=== PATIENT | female | born 1940 | race American Indian/Alaskan Native ===

== ENCOUNTER 2018-11-02 07:55 | Day surgery (SDC) | payer MEDICARE ==
--- NOTE | 2018-11-02 10:20 | Cat Scan Report ---
CTA ABDOMEN AND PELVIS HISTORY: Essential hypertension, evaluate for AAA COMPARISON: None. TECHNIQUE: Noncontrast CT abdomen obtained. Routine postcontrast CT angiography of the abdomen and p nick performed. Multiplanar/MIP/3D reformats were post-processed. CONTRAST: 100 ml of Omnipaque 350 FINDINGS: CTA ABDOMEN: Abdominal Aorta: The abdominal aorta is ectatic with moderate to severe diffuse calcific plaques. No aneurysm or dissection. No stenosis. Celiac Artery: Mild calcific plaques at its origin with narrowing estimated at 25%. Superior Mesenteric Artery: Moderate calcific plaques at its origin with narrowing estimated at 50%. Renal Arteries: Right: Moderate partially calcified plaque at its origin with stenosis estimated at 50%. Left: Moderate partially calcified plaque at its origin with stenosis estimated at 50%. Inferior Mesenteric Artery: No significant abnormality. CTA PELVIS: RIGHT: Common Iliac Artery: Moderate calcific plaques but no hemodynamically significant stenosis. Internal Iliac Artery: Moderate calcific plaques but no hemodynamically significant stenosis. External Iliac Artery: Moderate calcific plaques but no hemodynamically significant stenosis. LEFT: Common Iliac Artery: Moderate calcific plaques but no hemodynamically significant stenosis. Internal Iliac Artery: Moderate calcific plaques but no hemodynamically significant stenosis. External Iliac Artery: Moderate calcific plaques but no hemodynamically significant stenosis. NONTARGET STRUCTURES: ABDOMEN: GI:No significant abnormality. :There is mild diffuse renal cortical thinning and scattered renal cysts. No nephrolithiasis or hy dronephrosis. Lymphatics:No significant abnormality. PELVIS: :Mildly calcified small uterine fibroids are identified. No adnexal mass. Osseous Structures: Osteopenia and mild degenerative changes in the spine. Additional Findings: None IMPRESSION: There is moderate diffuse arterial calcifications throughout the aorta and major branches as describe d above. No evidence for aneurysm or dissection. Mild atherosclerotic narrowing at the origins of the celiac axis and bilateral renal arteries is suspected. Signer Name: Dhiraj Myles Jr, MD Signed: 11/02/2018 10:16 AM Workstation Name: [id number]
== END 2018-11-02 07:56 | disposition home or self-care (01) ==
LOC: CATHLABREC 07:55 → CT 07:55 → CATHLABREC 07:56 → EDSTATUS 08:45
PROVIDERS: ATTEND Internal Medicine Cardiovascular Disease
DX: I70.0 Atherosclerosis of aorta (principal); I70.8 Atherosclerosis of other arteries; I71.2 Thoracic aortic aneurysm, without rupture; I12.9 Hypertensive chronic kidney disease with stage 1 through stage 4 chronic kidney disease, or unspecified chronic kidney disease; E11.22 Type 2 diabetes mellitus with diabetic chronic kidney disease; N18.3 Chronic kidney disease, stage 3 (moderate); M19.90 Unspecified osteoarthritis, unspecified site; F32.9 Major depressive disorder, single episode, unspecified; K21.9 Gastro-esophageal reflux disease without esophagitis; K55.1 Chronic vascular disorders of intestine; E11.65 Type 2 diabetes mellitus with hyperglycemia; E66.01 Morbid (severe) obesity due to excess calories; G47.30 Sleep apnea, unspecified; Z88.0 Allergy status to penicillin; Z88.8 Allergy status to other drugs, medicaments and biological substances; Z68.41 Body mass index [BMI] 40.0-44.9, adult; Z79.82 Long term (current) use of aspirin; Z79.899 Other long term (current) drug therapy; Z98.49 Cataract extraction status, unspecified eye; Z79.4 Long term (current) use of insulin; Z87.440 Personal history of urinary (tract) infections; Z91.81 History of falling; Z86.73 Personal history of transient ischemic attack (TIA), and cerebral infarction without residual deficits
CPT/HCPCS: 36415; 74174; 82565; 84520; Q9967

== ENCOUNTER 2020-06-04 21:49 | Inpatient (IN) | payer MEDICARE ==
[2020-06-04] MEDS ORDERED: oxyCODONE /ACETAMINOPHEN 5-325MG TAB PO ONE (22:15)
--- NOTE | 2020-06-04 22:21 | Emergency Department Report ---
ED General Adult HPI - General Chief complaint: Extremity Injury, Lower Stated complaint: RIGHT KNEE PAIN/MISSED DIALYSIS PUI?: No Time Seen by Provider: 06/04/20 22:03 Source: patient, EMS (Verbal report received from emergency medical services. EMS documentation not available at time of chart dictation ), RN notes reviewed, old records reviewed Mode of arrival: Stretcher Limitations: No Limitations, Physical Limitation - History of Present Illness Initial comments: The patient was evaluated in the emergency department for symptoms described in the history of present illness. He/she was evaluated in the context of the g lobal COVID-19 pandemic, which necessitated consideration that the patient might be at risk for infection with the virus that causes COVID-19. Institutional protocols and algorithms that pertain to the evaluation of patients at risk for COVID-19 are in a state of rapid change based on information released by regulatory bodies including the CDC and federal and state organizations. These policies and algorithms were followed during the patient's care in the emergency department. Please note that these policies, procedures and recommendations changed on a rapid basis. Nephrology: Dr Montemayor ( [facility] ) Cardiology: Dr Iraida Michelle Neurology: Dr Iraida Shelby Past medical history: Stroke, hypertension, end-stage renal disease on hemodialysis, diverticulitis, reports being admitted to [facility] about 2 weeks ago for symptomatic diverticulitis The patient is an 80-year-old female. She is brought to the hospital by emergency medical services. Patient was in her usual state of health a few days ago, when she slipped getting out of bed, and got stuck between the bed, and the wall. Patient was not able to ambulate afterwards, got herself back in the bed. The patient has been bedridden for the past 3 to 4 days, and has not been able to attend her activities of daily living or receive her hemodialysis. She called 911 today. She complains of right knee pain and leg pain. She does not think she hit her head. There is no neck pain. There is no chest pain. There is positive chronic shortness of breath. There is no abdominal pain. There is no dysuria. Patient reports defecating on herself in the bed, reports that her neighbors had to help her "clean myself." Today, patient called 911 because she is not able to attend to her activities of daily living. The patient typically gets dialysis Friday, , Friday, but her last hemodialysis session was last week on Friday. Her right knee pain is sharp and throbbing, increases with palpation and range of motion. It decreases with rest. -: days(s) Location: right, lower extremity Radiation: non-radiation Quality: aching Consistency: constant Improves with: rest Worsens with: movement - Related Data Home Medications Medication Instructions Recorded Confirmed Last Taken Aspirin 325 mg PO DAILY 01/27/14 06/30/15 01/27/14 325 mg Simvastatin (Nf) [Zocor TAB] 40 mg PO QHS 01/27/14 06/30/15 01/26/14 40 mg Folic Acid 20 mg PO QDAY 06/30/15 06/30/15 Unknown Furosemide [Lasix TAB] 20 mg PO QDAY 06/30/15 06/30/15 Unknown Omeprazole [PriLOSEC] 40 mg PO QDAY 06/30/15 06/30/15 Unknown Vit B Comp/C/Folic/Iron/Vit E 1 each PO QDAY 06/30/15 06/30/15 Unknown [Vitamin B Complex Tablet] Previous Rx's Medication Instructions Recorded Last Taken Type Insulin Aspart (Nf) [NovoLOG 100 10 units SUB-Q TID PRN 30 Days 01/31/14 Unknown Rx UNITS/ML VIAL] units Insulin Glargine [Lantus VIAL] 70 units SUB-Q HS 30 Days units 01/31/14 Unknown Rx amLODIPine 5 mg PO QDAY #30 tablet 01/31/14 Unknown Rx Bacitracin Zinc Oint [Antibiotic 1 applic TP PRN PRN #1 tube 07/14/15 Unknown Rx Oint] Clorazepate Dipotassium (Nf) 7.5 mg PO TID PRN #30 tablet 07/14/15 Unknown Rx [Tranxene (Nf)] cloNIDine [Catapres] 0.1 mg PO QDAY #30 tablet 07/14/15 Unknown Rx hydrALAZINE [Apresoline TAB] 50 mg PO Q8HR #90 tablet 07/14/15 Unknown Rx Sulfamethoxazole/Trimethoprim 1 each PO BID #20 tablet 10/20/15 Unknown Rx [Bactrim DS TAB] Allergies Allergy/AdvReac Type Severity Reaction Status Date / Time fesoterodine fumarate Allergy Unknown Verified 06/30/15 15:10 [From Ivonne] Penicillins AdvReac Unknown Verified 01/27/14 21:00 ED Review of Systems ROS: Stated complaint: RIGHT KNEE PAIN/MISSED DIALYSIS Other details as noted in HPI Constitutional: malaise, weakness, other (Denies loss of taste and smell). denies: fever Eyes: denies: eye discharge Respiratory: shortness of breath (Chronic shortness of breath) Cardiovascular: denies: chest pain Gastrointestinal: diarrhea. denies: abdominal pain, vomiting Genitourinary: denies: dysuria Musculoskeletal: arthralgia, myalgia Neurological: weakness (Global weakness). denies: headache Hematological/Lymphatic: denies: easy bleeding ED Past Medical Hx - Past Medical History Previous Medical History?: Yes Hx Hypertension: Yes Hx CVA: Yes (bilat leg weakness) Hx Diabetes: Yes Hx Deep Vein Thrombosis: No Hx GERD: Yes Hx Renal Disease: Yes (Hemodialysis Tues,Thurs and Sat) Hx Arthritis: Yes Hx HIV: No Additional medical history: neuropathy,neurogenic bladder-etiology unknown - Surgical History Past Surgical History?: Yes Additional Surgical History: Cyst removed from left lower extremity, fistula SAPNA - Social History Smoking Status: Never Smoker Substance Use Type: None - Medications Home Medications: Home Medications Medication Instructions Recorded Confirmed Last Taken Type Aspirin 325 mg PO DAILY 01/27/14 06/30/15 01/27/14 History 325 mg Simvastatin (Nf) [Zocor TAB] 40 mg PO QHS 01/27/14 06/30/15 01/26/14 History 40 mg Insulin Aspart (Nf) [NovoLOG 100 10 units SUB-Q TID PRN 30 Days 01/31/14 06/30/15 Unknown Rx UNITS/ML VIAL] units Insulin Glargine [Lantus VIAL] 70 units SUB-Q HS 30 Days units 01/31/14 06/30/15 Unknown Rx amLODIPine 5 mg PO QDAY #30 tablet 01/31/14 06/30/15 Unknown Rx Folic Acid 20 mg PO QDAY 06/30/15 06/30/15 Unknown History Furosemide [Lasix TAB] 20 mg PO QDAY 06/30/15 06/30/15 Unknown History Omeprazole [PriLOSEC] 40 mg PO QDAY 06/30/15 06/30/15 Unknown History Vit B Comp/C/Folic/Iron/Vit E 1 each PO QDAY 06/30/15 06/30/15 Unknown History [Vitamin B Complex Tablet] Bacitracin Zinc Oint [Antibiotic 1 applic TP PRN PRN #1 tube 07/14/15 Unknown Rx Oint] Clorazepate Dipotassium (Nf) 7.5 mg PO TID PRN #30 tablet 07/14/15 Unknown Rx [Tranxene (Nf)] cloNIDine [Catapres] 0.1 mg PO QDAY #30 tablet 07/14/15 Unknown Rx hydrALAZINE [Apresoline TAB] 50 mg PO Q8HR #90 tablet 07/14/15 Unknown Rx Sulfamethoxazole/Trimethoprim 1 each PO BID #20 tablet 10/20/15 Unknown Rx [Bactrim DS TAB] ED Physical Exam - General Limitations: Physical Limitation General appearance: alert, anxious, in distress, obese - Head Head exam: Present: atraumatic, normocephalic - Eye Eye exam: Present: normal appearance, EOMI. Absent: nystagmus - ENT ENT exam: Present: normal exam, normal orophraynx, mucous membranes moist, normal external ear exam - Neck Neck exam: Present: normal inspection, full ROM - Respiratory Respiratory exam: Present: accessory muscle use. Absent: respiratory distress, wheezes, rales, rhonchi, stridor - Cardiovascular Cardiovascular Exam: Present: regular rate, normal rhythm, normal heart sounds, JVD. Absent: bradycardia, tachycardia, irregular rhythm, systolic murmur, diastolic murmur, rubs, gallop - GI/Abdominal GI/Abdominal exam: Present: soft. Absent: distended, tenderness, guarding, rebound, rigid, pulsatile mass - Rectal Rectal exam: Present: normal inspection, other (Chaperoned by nurse Leesa Soriano) - Extremities Exam Extremities exam: Present: full ROM (Full range of motion in the bilateral upper extremities, and left lower extremity.), tenderness (The pelvis is tender. The distal right femur is tender. The right knee is tender. The ankles are not tender.), other (There is a left upper extremity fistula, without redness, pus, streaking or tenderness.). Absent: normal inspection ("Skin blister"/abrasion noted on the right lateral thigh. The patient states this is chronic.), calf tenderness - Back Exam Back exam: Present: normal inspection. Absent: tenderness, CVA tenderness (R), CVA tenderness (L), paraspinal tenderness, vertebral tenderness - Neurological Exam Neurological exam: Present: alert, other (No facial droop. Tongue midline. Extraocular movements intact bilaterally. Facial sensation intact to light touch in V1, V2, V3 distribution bilaterally. 5 and a 5 strength in 4 extremities. Sensation intact to light touch in 4 extremities.) - Psychiatric Psychiatric exam: Present: anxious - Skin Skin exam: Present: warm ED Course Vital Signs 06/04/20 06/04/20 06/04/20 22:06 22:08 22:16 Temperature Pulse Rate 106 H 105 H 105 H Respiratory 12 18 43 H Rate Blood Pressure 106/59 Blood Pressure 106/59 [Right] O2 Sat by Pulse 98 97 98 Oximetry O2 Sat by Pulse Oximetry [ Digit-Finger] 06/04/20 06/04/20 06/04/20 22:30 22:46 22:59 Temperature Pulse Rate 103 H 99 H Respiratory 45 H 48 H 18 Rate Blood Pressure 106/59 98/44 Blood Pressure [Right] O2 Sat by Pulse Oximetry O2 Sat by Pulse Oximetry [ Digit-Finger] 06/04/20 06/04/20 06/04/20 23:00 23:01 23:16 Temperature 98.4 F Pulse Rate 104 H 103 H Respiratory 47 H 48 H Rate Blood Pressure 98/44 119/62 Blood Pressure [Right] O2 Sat by Pulse Oximetry O2 Sat by Pulse Oximetry [ Digit-Finger] 06/05/20 00:20 Temperature Pulse Rate Respiratory Rate Blood Pressure Blood Pressure [Right] O2 Sat by Pulse Oximetry O2 Sat by Pulse 97 Oximetry [ Digit-Finger] - Reevaluation(s) Reevaluation #1: 06/04/20 22:22 Differential diagnosis, including but not limited to: Fall, fracture, strain, sprain, dislocation, end-stage renal disease on hemodialysis, closed head injury, debility, electrolyte derangement, rhabdomyolysis Assessment and plan: 80-year-old female who is on hemodialysis, who is clinically sober with a GCS of 15, it is currently Friday evening, her last dialysis session was Friday of last week, presenting with subacute complaint of mechanical fall, inability to get out of bed, and attend to her activities of daily living. Patient is clinically sober at this time. The cervical spine is cleared through nexus and [place]ong [place]onger c spine rule Place patient on ekg monitor. Obtain appropriate laboratory studies, EKG, appropriate x-rays, CT scan of the brain, treat pain, discussed with nephrology once initial laboratory studies have resulted, and reassess. Anticipate admission to the medical service once patient's initial diagnostics have resulted. I discussed this plan of care with the patient, who verbalized understanding, and is amenable to this plan of care. Reevaluation #2: 06/05/20 00:19 Laboratory studies are reviewed and appreciated. CT scan of the brain negative for acute traumatic findings. X-rays do not demonstrate fracture or dislocation. Leukocytosis on laboratory studies likely a stress reaction. Patient found to have azotemia, uremia, elevated troponin is likely a type II troponin leak, likely secondary to renal insufficiency. We will discuss with nephrology. 06/05/20 00:23 Discussed patient's history, physical, pertinent laboratory studies and imaging findings with nephrology on-call, Dr. Aguillon. We appreciate her specific laboratory studies at this time, however, patient not able to ambulate, care for herself, or engage in activities of daily living. She is also not able to follow-up as an outpatient for hemodialysis. She is therefore unsafe discharge, and will benefit from urgent hemodialysis, case management, physical therapy evaluation. Nephrology, Dr. Aguillon will follow in consultation, and arrange for urgent hemodialysis in the morning. We will admit patient for the aforementioned. Hospital physician, Dr. Margarita Coates to admit - Pulse Oximetry Interpretation Digit-Finger Initial Pulse Oximetry Readin O2 Sat by Pulse Oximetry: 97 Actions Taken: none ED Medical Decision Making - Lab Data Result diagrams: 06/04/20 23:11 06/04/20 23:11 Vital Signs 06/04/20 06/04/20 22:06 22:08 Pulse Rate 106 H 105 H Respiratory 12 18 Rate Blood Pressure 106/59 [Right] O2 Sat by Pulse 98 97 Oximetry Lab Results 06/04/20 06/04/20 06/04/20 Range/Units 23:11 23:11 23:11 WBC 12.0 H (4.5-11.0) K/mm3 RBC 3.62 L (3.65-5.03) M/mm3 Hgb 9.9 L (10.1-14.3) gm/dl Hct 31.0 (30.3-42.9) % MCV 86 (79-97) fl MCH 27 L (28-32) pg MCHC 32 (30-34) % RDW 19.4 H (13.2-15.2) % Plt Count 319 (140-440) K/mm3 PT 16.3 H (12.2-14.9) Sec. INR 1.31 H (0.87-1.13) Sodium 139 (137-145) mmol/L Potassium 3.5 L (3.6-5.0) mmol/L Chloride 101.6 (98-107) mmol/L Carbon Dioxide 22 (22-30) mmol/L Anion Gap 19 mmol/L BUN 54 H (7-17) mg/dL Creatinine 8.8 H (0.6-1.2) mg/dL Estimated GFR 5 ml/min BUN/Creatinine Ratio 6 % Glucose 222 H (65-100) mg/dL Calcium 8.7 (8.4-10.2) mg/dL Magnesium (1.7-2.3) mg/dL Total Bilirubin 0.20 (0.1-1.2) mg/dL AST 19 (5-40) units/L ALT 12 (7-56) units/L Alkaline Phosphatase 89 (35-129) units/L Total Creatine Kinase (30-135) units/L Troponin T 0.099 H (0.00-0.029) ng/mL Total Protein 7.0 (6.3-8.2) g/dL Albumin 2.7 L (3.9-5) g/dL Albumin/Globulin Ratio 0.6 % 06/04/20 Range/Units 23:11 WBC (4.5-11.0) K/mm3 RBC (3.65-5.03) M/mm3 Hgb (10.1-14.3) gm/dl Hct (30.3-42.9) % MCV (79-97) fl MCH (28-32) pg MCHC (30-34) % RDW (13.2-15.2) % Plt Count (140-440) K/mm3 PT (12.2-14.9) Sec. INR (0.87-1.13) Sodium (137-145) mmol/L Potassium (3.6-5.0) mmol/L Chloride (98-107) mmol/L Carbon Dioxide (22-30) mmol/L Anion Gap mmol/L BUN (7-17) mg/dL Creatinine (0.6-1.2) mg/dL Estimated GFR ml/min BUN/Creatinine Ratio % Glucose (65-100) mg/dL Calcium (8.4-10.2) mg/dL Magnesium 2.40 H (1.7-2.3) mg/dL Total Bilirubin (0.1-1.2) mg/dL AST (5-40) units/L ALT (7-56) units/L Alkaline Phosphatase (35-129) units/L Total Creatine Kinase 60 (30-135) units/L Troponin T (0.00-0.029) ng/mL Total Protein (6.3-8.2) g/dL Albumin (3.9-5) g/dL Albumin/Globulin Ratio % Vital Signs 06/04/20 06/04/20 06/04/20 22:06 22:08 22:16 Temperature Pulse Rate 106 H 105 H 105 H Respiratory 12 18 43 H Rate Blood Pressure 106/59 Blood Pressure 106/59 [Right] O2 Sat by Pulse 98 97 98 Oximetry O2 Sat by Pulse Oximetry [ Digit-Finger] 06/04/20 06/04/20 06/04/20 22:30 22:46 22:59 Temperature Pulse Rate 103 H 99 H Respiratory 45 H 48 H 18 Rate Blood Pressure 106/59 98/44 Blood Pressure [Right] O2 Sat by Pulse Oximetry O2 Sat by Pulse Oximetry [ Digit-Finger] 06/04/20 06/04/20 06/04/20 23:00 23:01 23:16 Temperature 98.4 F Pulse Rate 104 H 103 H Respiratory 47 H 48 H Rate Blood Pressure 98/44 119/62 Blood Pressure [Right] O2 Sat by Pulse Oximetry O2 Sat by Pulse Oximetry [ Digit-Finger] 06/05/20 00:15 Temperature Pulse Rate Respiratory Rate Blood Pressure Blood Pressure [Right] O2 Sat by Pulse Oximetry O2 Sat by Pulse 97 Oximetry [ Digit-Finger] - EKG Data -: EKG Interpreted by Ct EKG shows normal: sinus rhythm Rate: normal - EKG Data 06/04/20 23:04 EKG time of interpretation, 21: 59 Sinus rhythm, tachycardia, 103 bpm. Left axis deviation, left anterior fascicular block. Right bundle branch block noted, poor R wave progression, motion artifact V4. This is an abnormal EKG. This is not a STEMI - Radiology Data Radiology results: pending, report reviewed, image reviewed XR chest 1V ap INDICATION / CLINICAL INFORMATION: fall weakness dyspnea COMPARISON: None available. FINDINGS: SUPPORT DEVICES: None. HEART / MEDIASTINUM: No significant abnormality. LUNGS / PLEURA: Left lower lung zone is obscured which is thought to be related to prominent pericardiac fat. Otherwise, lungs are clear. No definite effusion. No pneumothorax. ADDITIONAL FINDINGS: No significant additional findings. IMPRESSION: 1. No acute findings. Signer Name: Omar Hensley MD Signed: 06/04/2020 10:37 PM Workstation Name: [id number] XR femur 2+V RT, XR knee 3V RT, XR pelvis 1-2V INDICATION / CLINICAL INFORMATION: fall leg pain. COMPARISON: None available. FINDINGS: No acute fracture. Normal alignment. Joint spaces are preserved. No destructive osseous lesion or suspicious periosteal reaction. Impression: 1.No acute fracture is identified. Signer Name: Omar Hensley MD Signed: 06/04/2020 10:49 PM Workstation Name: [id number] XR femur 2+V RT, XR knee 3V RT, XR pelvis 1-2V INDICATION / CLINICAL INFORMATION: fall leg pain. COMPARISON: None available. FINDINGS: No acute fracture. Normal alignment. Joint spaces are preserved. No destructive osseous lesion or suspicious periosteal reaction. Impression: 1.No acute fracture is identified. Signer Name: Omar Hensley MD Signed: 06/04/2020 10:49 PM Workstation Name: [id number] XR femur 2+V RT, XR knee 3V RT, XR pelvis 1-2V INDICATION / CLINICAL INFORMATION: fall leg pain. COMPARISON: None available. FINDINGS: No acute fracture. Normal alignment. Joint spaces are preserved. No destructive osseous lesion or suspicious periosteal reaction. Impression: 1.No acute fracture is identified. Signer Name: Omar Hensley MD Signed: 06/04/2020 10:49 PM Workstation Name: [id number] CT head/brain wo con INDICATION: fall weakness. TECHNIQUE: Routine CT head. All CT scans at this location are performed using CT dose reduction for ALARA by means of automated exposure control. COMPARISON: None. FINDINGS: Intrac ranial: Berg-white matter differentiation is maintained. No intracranial hemorrhage. No extra axial collection. No hydrocephalus. No herniation. Sinuses: Paranasal sinuses and mastoid air cells are essentially clear. Orbits: Globes are intact. Calvarium: No acute fracture. IMPRESSION: 1. No acute intracranial abnormality. Signer Name: Omar Hensley MD Signed: 06/04/2020 10:51 PM Workstation Name: [id number] Critical care attestation.: If time is entered above; I have spent that time in minutes in the direct care of this critically ill patient, excluding procedure time. ED Disposition Clinical Impression: Fall, Right leg pain, End-stage renal disease on hemodialysis, Morbid obesity, Debility, Uremia, Azotemia Disposition: 09 OP ADMIT IP TO THIS HOSP Is pt being admited?: Yes Does the pt Need Aspirin: Yes Condition: Fair Referrals: NICOLAS PEREZ MD [Primary Care Provider] - 3-5 Days
[2020-06-04 23:34] LABS: Hemoglobin 9.9 gm/dl (10.1-14.3); Mean Corpuscular HGB Conc 32 % (30-34); Mean Corpuscular Volume 86 fl (79-97); Platelet Count 319 K/mm3 (140-440); Red Blood Count 3.62 M/mm3 (3.65-5.03); Red Cell Distribution Width 19.4 % (13.2-15.2)
--- NOTE | 2020-06-04 23:41 | XRay Report ---
XR chest 1V ap INDICATION / CLINICAL INFORMATION: fall weakness dyspnea COMPARISON: None available. FINDINGS: SUPPORT DEVICES: None. HEART / MEDIASTINUM: No significant abnormality. LUNGS / PLEURA: Left lower lung zone is obscured which is thought to be related to prominent pericard iac fat. Otherwise, lungs are clear. No definite effusion. No pneumothorax. ADDITIONAL FINDINGS: No significant additional findings. IMPRESSION: 1. No acute findings. Signer Name: Omar Hensley MD Signed: 06/04/2020 11:37 PM Workstation Name: [id number]
--- NOTE | 2020-06-04 23:54 | XRay Report ---
XR femur 2+V RT, XR knee 3V RT, XR pelvis 1-2V INDICATION / CLINICAL INFORMATION: fall leg pain. COMPARISON: None available. FINDINGS: No acute fracture. Normal alignment. Joint spaces are preserved. No destructive osseous lesion or s uspicious periosteal reaction. Impression: 1.No acute fracture is identified. Signer Name: Omar Hensley MD Signed: 06/04/2020 11:49 PM Workstation Name: [id number]
--- NOTE | 2020-06-04 23:55 | Cat Scan Report ---
CT head/brain wo con INDICATION: fall weakness. TECHNIQUE: Routine CT head. All CT scans at this location are performed using CT dose reduction for A TABATHA by means of automated exposure control. COMPARISON: None. FINDINGS: Intracranial: Berg-white matter differentiation is maintained. No intracranial hemorrhage. No extra a xial collection. No hydrocephalus. No herniation. Sinuses: Paranasal sinuses and mastoid air cells are essentially clear. Orbits: Globes are intact. Calvarium: No acute fracture. IMPRESSION: 1. No acute intracranial abnormality. Signer Name: Omar Hensley MD Signed: 06/04/2020 11:51 PM Workstation Name: [id number]
[2020-06-04 23:56] LABS: INR 1.31 (0.87-1.13)
[2020-06-05 00:08] LABS: Albumin 2.7 g/dL (3.9-5); Calcium 8.7 mg/dL (8.4-10.2)
[2020-06-05] MEDS ORDERED: ASPIRIN 81 MG TAB CHEW PO ONE (00:20)
[2020-06-05] MEDS ORDERED: ONDANSETRON 4 MG/2 ML INJ IV PRN (01:39)
[2020-06-05] MEDS ORDERED: ACETAMINOPHEN 325 MG TAB PO PRN (01:41)
--- NOTE | 2020-06-05 06:12 | History and Physical Report ---
History of Present Illness Date of examination: 06/05/20 Date of admission: 06/05/20 00:47 Chief complaint: Chief complaint is one fall, other complaint include need for hemodialysis and inability to take care of oneself History of present illness: History of presenting illness, patient is an 80-year-old female who fell at home and was unable to get off for some time and became bedridden and was unable to go for her hemodialysis. Patient remained in her house alone unable to take care of herself and was peeing and defecating on herself, there was no loss of c onsciousness, no fever, no chills, no history of chest pain or shortness of breath and patient was subsequently brought to the emergency room, there was complaint of pain in the right knee following the fall at home Past History Past Medical History: arthritis, diabetes, ESRD, GERD, hypertension, stroke Past Surgical History: Other (LEFT UPPER ARM FISTULA, CYST REMOVAL FROM LEFT LOWER EXTREMITY) Social history: no significant social history Family history: no significant family history Medications and Allergies Allergies Allergy/AdvReac Type Severity Reaction Status Date / Time fesoterodine fumarate Allergy Unknown Verified 06/30/15 15:10 [From [facility]] Penicillins AdvReac Unknown Verified 01/27/14 21:00 Home Medications Medication Instructions Recorded Confirmed Last Taken Type Furosemide [Lasix TAB] 20 mg PO QDAY 06/30/15 06/05/20 Unknown History Omeprazole [PriLOSEC] 40 mg PO QDAY 06/30/15 06/05/20 Unknown History Budesonide/Formoterol Fumarate 10.2 gm IH BID 06/05/20 06/05/20 Unknown History [Symbicort 80-4.5 Mcg Inhaler] Fluticasone [Flonase] 2 spray NS QDAY 06/05/20 06/05/20 Unknown History Insulin Glargine [Lantus VIAL] 60 units SUB-Q HS 06/05/20 06/05/20 Unknown History Lidocaine/Prilocaine [Lido-Prilo 1 each TP 3XW 06/05/20 06/05/20 Unknown History Mg Pack] Lovastatin [Altoprev] 20 mg PO DAILY 06/05/20 06/05/20 Unknown History Vit B Comp C/Folic Acid/Vit D3 1 each PO DAILY 06/05/20 06/05/20 Unknown History [Dialyvite 800 Plus D Wafer] Active Meds: Active Medications Acetaminophen (Acetaminophen 325 Mg Tab) 650 mg PO Q4H PRN PRN Reason: Headache Insulin Human Regular (Insulin Regular, Human 100 Units/1 Ml) 0 units SUB-Q ACHS [facility]; Protocol Morphine Sulfate (Morphine 2 Mg/1 Ml Inj) 2 mg IV Q4H PRN PRN Reason: Pain, Moderate (4-6) Ondansetron HCl (Ondansetron 4 Mg/2 Ml Inj) 4 mg IV Q8H PRN PRN Reason: Nausea And Vomiting Review of Systems Constitutional: weakness, malaise, no fever, no chills Eyes: bilateral: other (NO BILATERAL EYE SYMPTOMS) Exam - Constitutional Vitals: Temp Pulse Resp BP Pulse Ox 98.1 F 97 H 20 106/49 96 06/05/20 03:14 06/05/20 03:14 06/05/20 03:14 06/05/20 03:14 06/05/20 03:14 General appearance: Present: no acute distress - EENT Eyes: Present: PERRL, EOM intact ENT: hearing intact, clear oral mucosa, dentition normal - Neck Neck: Present: supple - Respiratory Respiratory effort: normal - Cardiovascular Heart Sounds: Present: S1 & S2, gallop. Absent: systolic murmur, diastolic murm ur - Extremities Extremities: no ischemia, No edema Peripheral Pulses: within normal limits - Abdominal General gastrointestinal: Present: soft, non-tender, non-distended. Absent: tender, distended, rigid Female genitourinary: Present: deferred - Rectal Rectal Exam: deferred - Integumentary Integumentary: Present: clear, warm, dry - Musculoskeletal Musculoskeletal: generalized weakness - Psychiatric Psychiatric: appropriate mood/affect HEART Score - HEART Score Risk factors: 1-2 risk factors Troponin: Troponin T 0.099 ng/mL (0.00-0.029) H 06/04/20 23:11 Troponin: < normal limit - Critical Actions Critical Actions: 0-3 pts:0.9-1.7%risk of adverse cardiac event.Candidate for discharge Results - Labs CBC & Chem 7: 06/04/20 23:11 06/04/20 23:11 Labs: Laboratory Last Values WBC 12.0 K/mm3 (4.5-11.0) H 06/04/20 23:11 RBC 3.62 M/mm3 (3.65-5.03) L 06/04/20 23:11 Hgb 9.9 gm/dl (10.1-14.3) L 06/04/20 23:11 Hct 31.0 % (30.3-42.9) 06/04/20 23:11 MCV 86 fl (79-97) 06/04/20 23:11 MCH 27 pg (28-32) L 06/04/20 23:11 MCHC 32 % (30-34) 06/04/20 23:11 RDW 19.4 % (13.2-15.2) H 06/04/20 23:11 Plt Count 319 K/mm3 (140-440) 06/04/20 23:11 PT 16.3 Sec. (12.2-14.9) H 06/04/20 23:11 INR 1.31 (0.87-1.13) H 06/04/20 23:11 Sodium 139 mmol/L (137-145) 06/04/20 23:11 Potassium 3.5 mmol/L (3.6-5.0) L 06/04/20 23:11 Chloride 101.6 mmol/L (98-107) 06/04/20 23:11 Carbon Dioxide 22 mmol/L (22-30) 06/04/20 23:11 Anion Gap 19 mmol/L 06/04/20 23:11 BUN 54 mg/dL (7-17) H 06/04/20 23:11 Creatinine 8.8 mg/dL (0.6-1.2) H 06/04/20 23:11 Estimated GFR 5 ml/min 06/04/20 23:11 BUN/Creatinine Ratio 6 % 06/04/20 23:11 Glucose 222 mg/dL (65-100) H 06/04/20 23:11 Calcium 8.7 mg/dL (8.4-10.2) 06/04/20 23:11 Magnesium 2.40 mg/dL (1.7-2.3) H 06/04/20 23:11 Total Bilirubin 0.20 mg/dL (0.1-1.2) 06/04/20 23:11 AST 19 units/L (5-40) 06/04/20 23:11 ALT 12 units/L (7-56) 06/04/20 23:11 Alkaline Phosphatase 89 units/L (35-129) 06/04/20 23:11 Total Creatine Kinase 60 units/L (30-135) 06/04/20 23:11 Troponin T 0.099 ng/mL (0.00-0.029) H 06/04/20 23:11 Total Protein 7.0 g/dL (6.3-8.2) 06/04/20 23:11 Albumin 2.7 g/dL (3.9-5) L 06/04/20 23:11 Albumin/Globulin Ratio 0.6 % 06/04/20 23:11 Montano/IV: Voiding Method External Female Catheter Assessment and Plan - Patient Problems (1) End-stage renal disease on hemodialysis Current Visit: Yes Status: Acute Plan to address problem: NEPHROLOGY CONSULT (2) Fall Current Visit: Yes Status: Acute Plan to address problem: 1. FALL PRECAUTION 2. CLINICAL ACCOUNT MANAGER/CARDIOPULMONARY SPECIALIST CONSULT (3) Right leg pain Current Visit: Yes Status: Acute Plan to address problem: 1. TYLENOL PRN PAIN (4) Diabetes mellitus Current Visit: No Status: Chronic Qualifiers: Diabetes mellitus type: type 2 Diabetes mellitus complication detail: with polyneuropathy Plan to address problem: 1. ACCU CHECKS 2. SLIDING SCALE INSULIN COVERAGE 3. DIABETIC DIET
[2020-06-05] MEDS: INSULIN REGULAR, HUMAN 100 UNITS/1 ML SUB-Q SCH ×4 (07:48→22:14)
[2020-06-05 08:07] LABS: Chol/HDL Ratio 3.61 %
--- NOTE | 2020-06-05 08:21 | Event Note ---
Date: 06/05/20 80-year-old female status post fall. Unable to get the hemodialysis. Patient had significant debility unable to get out of bed. Stayed on the floor incontinent of bowel and bladder. Upon evaluation patient weak in lower extremities. Had right knee pain status post fall. X-rays of the knee hip fibula are unremarkable. Head CT unremarkable. Right knee pain controlled with Tylenol. Patient presents for debility unable to take care of her self. Need for hemodialysis which is been arranged with nephrology. Patient also found to be anemic secondary to chronic kidney disease and increased troponin secondary to renal insufficiency.
[2020-06-05] MEDS: PANTOPRAZOLE 40 MG TAB PO SCH (08:44)
[2020-06-05] MEDS ORDERED: SODIUM CHLORIDE 0.9% 100 ML IV PRN (10:46)
--- NOTE | 2020-06-05 10:50 | Consultation ---
History of Present Illness - Reason for Consult Consult date: 06/05/20 end stage renal disease Requesting physician: JULISSA COLON - History of Present Illness 80-year-old lady with a history of diabetes mellitus, hypertension complicated by end-stage renal disease on hemodialysis for 2 years now. Patient was recently hospitalized at [facility] with diverticulitis, pneumonia and urinary tract infection. She was in the hospital for 2-week and discharged home last . Her last dialysis was Friday last week. Patient was meant to go to dialysis on Friday. Patient fell at home hurting her right knee and could not move around. She normally drives herself to dialysis. She was unable to go on Friday. She started feeling sick and decided to come to the hospital for further evaluation. She normally dialyzes for 3-1/2 hours with 2 to 3 L ultrafiltration. She denies any chest pain, shortness of breath or dizziness. She admits to chills and swelling of the right knee with pain in both knees. 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 denies: smoking, alcohol abuse, prescription drug abuse, IV drug use Family history: cancer (Father of bone cancer.), diabetes (Sister has type 2 diabetes mellitus), hypertension (Mother had hypertension and of a ruptured cerebral aneurysm.) Medications and Allergies Allergies Allergy/AdvReac Type Severity Reaction Status Date / Time fesoterodine fumarate Allergy Unknown Verified 06/30/15 15:10 [From [facility]] Penicillins AdvReac Unknown Verified 01/27/14 21:00 Home Medications Medication Instructions Recorded Confirmed Last Taken Type Furosemide [Lasix TAB] 20 mg PO QDAY 06/30/15 06/05/20 Unknown History Omeprazole [PriLOSEC] 40 mg PO QDAY 06/30/15 06/05/20 Unknown History Budesonide/Formoterol Fumarate 10.2 gm IH BID 06/05/20 06/05/20 Unknown History [Symbicort 80-4.5 Mcg Inhaler] Fluticasone [Flonase] 2 spray NS QDAY 06/05/20 06/05/20 Unknown History Insulin Glargine [Lantus VIAL] 60 units SUB-Q HS 06/05/20 06/05/20 Unknown History Lidocaine/Prilocaine [Lido-Prilo 1 each TP 3XW 06/05/20 06/05/20 Unknown History Mg Pack] Lovastatin [Altoprev] 20 mg PO DAILY 06/05/20 06/05/20 Unknown History Vit B Comp C/Folic Acid/Vit D3 1 each PO DAILY 06/05/20 06/05/20 Unknown History [Dialyvite 800 Plus D Wafer] Active Meds: Active Medications Acetaminophen (Acetaminophen 325 Mg Tab) 650 mg PO Q4H PRN PRN Reason: Headache Insulin Human Regular (Insulin Regular, Human 100 Units/1 Ml) 0 units SUB-Q ACHS [facility]; Protocol Last Admin: 06/05/20 07:48 Dose: Not Given Documented by: Morphine Sulfate (Morphine 2 Mg/1 Ml Inj) 2 mg IV Q4H PRN PRN Reason: Pain, Moderate (4-6) Ondansetron HCl (Ondansetron 4 Mg/2 Ml Inj) 4 mg IV Q8H PRN PRN Reason: Nausea And Vomiting Pantoprazole Sodium (Pantoprazole 40 Mg Tab) 40 mg PO QDAC [facility] Last Admin: 06/05/20 08:44 Dose: 40 mg Documented by: Review of Systems All systems: negative (Constitutional: no fever admits to chills. No anorexia or weight loss. HEENT: No sore throat or sinus drainage no hearing or vision impairment . Cardiovascular: No chest pain, shortness of breath, palpitations, lower extremity swelling or dizziness. Respiratory: No cough, sputum, shortness of breat) Exam - Vital Signs Vital signs: Vital Signs Pulse Resp Pulse Ox 106 H 12 98 06/04/20 22:06 06/04/20 22:06 06/04/20 22:06 - Physical Exam Narrative exam: Obese elderly -French female lying in bed in no acute distress HEENT: NCAT, pink oral mucous membrane, bilateral artificial lenses Neck: Supple, no venous distention CVS: S1S2 RRR with no murmur, rub or gallop Chest: Clear to auscultation Abdomen: Protuberant, soft, nontender, no organomegaly, bowel sounds are present Extremities: Trace edema Genitourinary deferred Skin warm and dry, no rash Neuro: Awake, alert no focal deficits Results - Lab Results 06/04/20 23:11 06/04/20 23:11 Most recent lab results Calcium 8.7 mg/dL (8.4-10.2) 06/04/20 23:11 Magnesium 2.40 mg/dL (1.7-2.3) H 06/04/20 23:11 Assessment and Plan - Patient Problems (1) Fall Current Visit: Yes Status: Acute Plan to address problem: PT OT evaluation. Will benefit from subacute rehabilitation (2) End-stage renal disease on hemodialysis Current Visit: Yes Status: Acute Plan to address problem: Hemodialysis today and continue on a Friday, Friday and Friday schedule while in the hospital. Attempt 3 L ultrafiltration today. 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 Will benefit from physical therapy
[2020-06-05] MEDS: MORPHINE 2 MG/1 ML INJ IV PRN ×2 (11:32→17:57)
[2020-06-05 13:09] LABS: Hepatitis B Surface Antigen Non-Reactive (Negative); Hepatitis C Virus Antibody Non-Reactive (NonReactive)
[2020-06-05 13:41] LABS: Creatine Kinase MB 1.7 ng/mL (0.0-4.0)
[2020-06-05] MEDS: EPOETIN ALFA-EPBX 10,000 UNIT/1 ML VIAL IV PRN (13:55)
[2020-06-06] MEDS: INSULIN REGULAR, HUMAN 100 UNITS/1 ML SUB-Q SCH ×4 (07:30→22:27)
[2020-06-06] MEDS: PANTOPRAZOLE 40 MG TAB PO SCH (09:11)
--- NOTE | 2020-06-06 10:52 | Progress Note ---
Assessment and Plan Assessment and plan: ESRD. Right leg pain Diabetes mellitus type 2 S/p falls. 06/06. Continue hemodialysis per nephrology. Accu-Cheks and sliding scale insulin. Await PT evaluation for placement. History Interval history: No new issues Hospitalist Physical - Constitutional Vitals: Temp Pulse Resp BP Pulse Ox 98.1 F 95 H 24 111/55 96 06/06/20 04:59 06/06/20 04:59 06/06/20 04:59 06/06/20 04:59 06/06/20 04:59 General appearance: Present: no acute distress - EENT Eyes: Present: PERRL, EOM intact ENT: hearing intact, clear oral mucosa, dentition normal - Neck Neck: Present: supple, normal ROM - Respiratory Respiratory effort: normal Respiratory: bilateral: CTA - Cardiovascular Rhythm: regular Heart Sounds: Present: S1 & S2. Absent: gallop, rub - Extremities Extremities: no ischemia, No edema, Full ROM - Abdominal General gastrointestinal: soft, non-tender, non-distended, normal bowel sounds - Integumentary Integumentary: Present: clear, warm, dry - Neurologic Neurologic: CNII-XII intact, moves all extremities HEART Score - HEART Score Risk factors: 1-2 risk factors Troponin: Troponin T 0.080 ng/mL (0.00-0.029) H 06/05/20 12:10 Troponin: < normal limit - Critical Actions Critical Actions: 0-3 pts:0.9-1.7%risk of adverse cardiac event.Candidate for discharge Results - Labs CBC & Chem 7: 06/04/20 23:11 06/04/20 23:11 Labs: Laboratory Last Values WBC 12.0 K/mm3 (4.5-11.0) H 06/04/20 23:11 RBC 3.62 M/mm3 (3.65-5.03) L 06/04/20 23:11 Hgb 9.9 gm/dl (10.1-14.3) L 06/04/20 23:11 Hct 31.0 % (30.3-42.9) 06/04/20 23:11 MCV 86 fl (79-97) 06/04/20 23:11 MCH 27 pg (28-32) L 06/04/20 23:11 MCHC 32 % (30-34) 06/04/20 23:11 RDW 19.4 % (13.2-15.2) H 06/04/20 23:11 Plt Count 319 K/mm3 (140-440) 06/04/20 23:11 PT 16.3 Sec. (12.2-14.9) H 06/04/20 23:11 INR 1.31 (0.87-1.13) H 06/04/20 23:11 Sodium 139 mmol/L (137-145) 06/04/20 23:11 Potassium 3.5 mmol/L (3.6-5.0) L 06/04/20 23:11 Chloride 101.6 mmol/L (98-107) 06/04/20 23:11 Carbon Dioxide 22 mmol/L (22-30) 06/04/20 23:11 Anion Gap 19 mmol/L 06/04/20 23:11 BUN 54 mg/dL (7-17) H 06/04/20 23:11 Creatinine 8.8 mg/dL (0.6-1.2) H 06/04/20 23:11 Estimated GFR 5 ml/min 06/04/20 23:11 BUN/Creatinine Ratio 6 % 06/04/20 23:11 Glucose 222 mg/dL (65-100) H 06/04/20 23:11 POC Glucose 148 mg/dL (70-105) H 06/05/20 22:05 Calcium 8.7 mg/dL (8.4-10.2) 06/04/20 23:11 Magnesium 2.40 mg/dL (1.7-2.3) H 06/04/20 23:11 Total Bilirubin 0.20 mg/dL (0.1-1.2) 06/04/20 23:11 AST 19 units/L (5-40) 06/04/20 23:11 ALT 12 units/L (7-56) 06/04/20 23:11 Alkaline Phosphatase 89 units/L (35-129) 06/04/20 23:11 Total Creatine Kinase 42 units/L (30-135) 06/05/20 12:10 CK-MB (CK-2) 1.7 ng/mL (0.0-4.0) 06/05/20 12:10 CK-MB (CK-2) Rel Index 4.0 (0-4) 06/05/20 12:10 Troponin T 0.080 ng/mL (0.00-0.029) H 06/05/20 12:10 Total Protein 7.0 g/dL (6.3-8.2) 06/04/20 23:11 Albumin 2.7 g/dL (3.9-5) L 06/04/20 23:11 Albumin/Globulin Ratio 0.6 % 06/04/20 23:11 Triglycerides 197 mg/dL (2-149) H 06/05/20 05:20 Cholesterol 94 mg/dL (50-199) 06/05/20 05:20 LDL Cholesterol Direct 31 mg/dL (50-130) L 06/05/20 05:20 HDL Cholesterol 26 mg/dL (40-59) L 06/05/20 05:20 Cholesterol/HDL Ratio 3.61 % 06/05/20 05:20 Hepatitis A IgM Ab Non-reactive (NonReactive) 06/05/20 12:10 Hep Bs Antigen Non-reactive (Negative) 06/05/20 12:10 Hep B Core IgM Ab Non-reactive (NonReactive) 06/05/20 12:10 Hepatitis C Antibody Non-reactive (NonReactive) 06/05/20 12:10 Montano/IV: Voiding Method External Female Catheter Active Medications - Current Medications Current Medications: Generic Name Dose Route Start Last Admin Trade Name Freq PRN Reason Stop Dose Admin Acetaminophen 650 mg 06/05/20 01:41 Acetaminophen 325 Mg Tab PO Q4H PRN Headache Sodium Chloride 100 mls @ 999 mls/hr 06/05/20 10:46 Nacl 0.9% IV NANO PRN Hypotension Insulin Human Regular 0 units 06/05/20 07:30 06/05/20 22:14 Insulin Regular, Human 100 Units/1 Ml SUB-Q Not Given ACHS [facility] Protocol Morphine Sulfate 2 mg 06/05/20 01:39 06/05/20 17:57 Morphine 2 Mg/1 Ml Inj IV 2 mg Q4H PRN Administration Pain, Moderate (4-6) Ondansetron HCl 4 mg 06/05/20 01:39 Ondansetron 4 Mg/2 Ml Inj IV Q8H PRN Nausea And Vomiting Pantoprazole Sodium 40 mg 06/05/20 09:00 06/06/20 09:11 Pantoprazole 40 Mg Tab PO 40 mg QDAC MARTY Administration
--- NOTE | 2020-06-06 11:16 | Progress Note ---
Assessment and Plan - Patient Problems (1) Fall Current Visit: Yes Status: Acute Plan to address problem: PT evaluation appreciated. Will benefit from subacute rehabilitation (2) End-stage renal disease on hemodialysis Current Visit: Yes Status: Acute Plan to address problem: Hemodialysis on a Friday, Friday and Friday schedule while in the hospital. 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 Will benefit from physical therapy Subjective Date of service: 06/06/20 Principal diagnosis: End-stage renal disease Interval history: Patient seen lying in bed. She is feeling better. Got out of bed with PT earlier but could not walk far. Objective - Exam Narrative Exam: Obese elderly -[place]er female lying in bed in no acute distress HEENT: NCAT, pink oral mucous membrane, bilateral artificial lenses Neck: Supple, no venous distention CVS: S1S2 RRR with no murmur, rub or gallop Chest: Clear to auscultation Abdomen: Protuberant, soft, nontender, no organomegaly, bowel sounds are present Extremities: Trace edema Genitourinary deferred Skin warm and dry, no rash Neuro: Awake, alert no focal deficits - Vital Signs Vital signs: Vital Signs - 12hr 06/06/20 06/06/20 00:18 04:59 Temperature 98.5 F 98.1 F Pulse Rate 99 H 95 H Respiratory 24 24 Rate Blood Pressure 117/62 111/55 O2 Sat by Pulse 94 96 Oximetry - Lab 06/04/20 23:11 06/04/20 23:11 Most recent lab results Calcium 8.7 mg/dL (8.4-10.2) 06/04/20 23:11 Magnesium 2.40 mg/dL (1.7-2.3) H 06/04/20 23:11 Medications & Allergies - Medications Allergies/Adverse Reactions: Allergies fesoterodine fumarate [From Toviaz] Allergy (Verified 06/30/15 15:10) Unknown Penicillins Adverse Reaction (Verified 01/27/14 21:00) Unknown Home Medications: Home Medications Medication Instructions Recorded Confirmed Last Taken Type Furosemide [Lasix TAB] 20 mg PO QDAY 06/30/15 06/05/20 Unknown History Omeprazole [PriLOSEC] 40 mg PO QDAY 06/30/15 06/05/20 Unknown History Budesonide/Formoterol Fumarate 10.2 gm IH BID 06/05/20 06/05/20 Unknown History [Symbicort 80-4.5 Mcg Inhaler] Fluticasone [Flonase] 2 spray NS QDAY 06/05/20 06/05/20 Unknown History Insulin Glargine [Lantus VIAL] 60 units SUB-Q HS 06/05/20 06/05/20 Unknown History Lidocaine/Prilocaine [Lido-Prilo 1 each TP 3XW 06/05/20 06/05/20 Unknown History Mg Pack] Lovastatin [Altoprev] 20 mg PO DAILY 06/05/20 06/05/20 Unknown History Vit B Comp C/Folic Acid/Vit D3 1 each PO DAILY 06/05/20 06/05/20 Unknown History [Dialyvite 800 Plus D Wafer] Active Medications: Generic Name Dose Route Start Last Admin Trade Name Andiq PRN Reason Stop Dose Admin Acetaminophen 650 mg 06/05/20 01:41 Acetaminophen 325 Mg Tab PO Q4H PRN Headache Sodium Chloride 100 mls @ 999 mls/hr 06/05/20 10:46 Nacl 0.9% IV NANO PRN Hypotension Insulin Human Regular 0 units 06/05/20 07:30 06/05/20 22:14 Insulin Regular, Human 100 Units/1 Ml SUB-Q Not Given ACHS MARTY Protocol Morphine Sulfate 2 mg 06/05/20 01:39 06/05/20 17:57 Morphine 2 Mg/1 Ml Inj IV 2 mg Q4H PRN Administration Pain, Moderate (4-6) Ondansetron HCl 4 mg 06/05/20 01:39 Ondansetron 4 Mg/2 Ml Inj IV Q8H PRN Nausea And Vomiting Pantoprazole Sodium 40 mg 06/05/20 09:00 06/06/20 09:11 Pantoprazole 40 Mg Tab PO 40 mg QDAC MARTY Administration
[2020-06-06] MEDS: MORPHINE 2 MG/1 ML INJ IV PRN (17:46)
--- NOTE | 2020-06-07 09:31 | Progress Note ---
Assessment and Plan Assessment and plan: ESRD. Right leg pain Diabetes mellitus type 2 S/p falls. 06/06. Continue hemodialysis per nephrology. Accu-Cheks and sliding scale insulin. Await PT evaluation for placement. 06/07. Continue hemodialysis per nephrology. Physical therapy recommends subacute rehab. Will discuss with case management placement options. History Interval history: No new issues Hospitalist Physical - Constitutional Vitals: Temp Pulse Resp BP Pulse Ox 97.8 F 90 20 127/54 95 06/07/20 05:06 06/07/20 05:06 06/07/20 05:06 06/07/20 05:06 06/07/20 05:06 General appearance: Present: no acute distress - EENT Eyes: Present: PERRL, EOM intact ENT: hearing intact, clear oral mucosa, dentition normal - Neck Neck: Present: supple, normal ROM - Respiratory Respiratory effort: normal Respiratory: bilateral: CTA - Cardiovascular Rhythm: regular Heart Sounds: Present: S1 & S2. Absent: gallop, rub - Extremities Extremities: no ischemia, No edema, Full ROM - Abdominal General gastrointestinal: soft, non-tender, non-distended, normal bowel sounds - Integumentary Integumentary: Present: clear, warm, dry - Neurologic Neurologic: CNII-XII intact, moves all extremities HEART Score - HEART Score Risk factors: 1-2 risk factors Troponin: Troponin T 0.080 ng/mL (0.00-0.029) H 06/05/20 12:10 Troponin: < normal limit - Critical Actions Critical Actions: 0-3 pts:0.9-1.7%risk of adverse cardiac event.Candidate for discharge Results - Labs CBC & Chem 7: 06/04/20 23:11 06/04/20 23:11 Labs: Laboratory Last Values WBC 12.0 K/mm3 (4.5-11.0) H 06/04/20 23:11 RBC 3.62 M/mm3 (3.65-5.03) L 06/04/20 23:11 Hgb 9.9 gm/dl (10.1-14.3) L 06/04/20 23:11 Hct 31.0 % (30.3-42.9) 06/04/20 23:11 MCV 86 fl (79-97) 06/04/20 23:11 MCH 27 pg (28-32) L 06/04/20 23:11 MCHC 32 % (30-34) 06/04/20 23:11 RDW 19.4 % (13.2-15.2) H 06/04/20 23:11 Plt Count 319 K/mm3 (140-440) 06/04/20 23:11 PT 16.3 Sec. (12.2-14.9) H 06/04/20 23:11 INR 1.31 (0.87-1.13) H 06/04/20 23:11 Sodium 139 mmol/L (137-145) 06/04/20 23:11 Potassium 3.5 mmol/L (3.6-5.0) L 06/04/20 23:11 Chloride 101.6 mmol/L (98-107) 06/04/20 23:11 Carbon Dioxide 22 mmol/L (22-30) 06/04/20 23:11 Anion Gap 19 mmol/L 06/04/20 23:11 BUN 54 mg/dL (7-17) H 06/04/20 23:11 Creatinine 8.8 mg/dL (0.6-1.2) H 06/04/20 23:11 Estimated GFR 5 ml/min 06/04/20 23:11 BUN/Creatinine Ratio 6 % 06/04/20 23:11 Glucose 222 mg/dL (65-100) H 06/04/20 23:11 POC Glucose 190 mg/dL (70-105) H 06/06/20 21:31 Calcium 8.7 mg/dL (8.4-10.2) 06/04/20 23:11 Magnesium 2.40 mg/dL (1.7-2.3) H 06/04/20 23:11 Total Bilirubin 0.20 mg/dL (0.1-1.2) 06/04/20 23:11 AST 19 units/L (5-40) 06/04/20 23:11 ALT 12 units/L (7-56) 06/04/20 23:11 Alkaline Phosphatase 89 units/L (35-129) 06/04/20 23:11 Total Creatine Kinase 42 units/L (30-135) 06/05/20 12:10 CK-MB (CK-2) 1.7 ng/mL (0.0-4.0) 06/05/20 12:10 CK-MB (CK-2) Rel Index 4.0 (0-4) 06/05/20 12:10 Troponin T 0.080 ng/mL (0.00-0.029) H 06/05/20 12:10 Total Protein 7.0 g/dL (6.3-8.2) 06/04/20 23:11 Albumin 2.7 g/dL (3.9-5) L 06/04/20 23:11 Albumin/Globulin Ratio 0.6 % 06/04/20 23:11 Triglycerides 197 mg/dL (2-149) H 06/05/20 05:20 Cholesterol 94 mg/dL (50-199) 06/05/20 05:20 LDL Cholesterol Direct 31 mg/dL (50-130) L 06/05/20 05:20 HDL Cholesterol 26 mg/dL (40-59) L 06/05/20 05:20 Cholesterol/HDL Ratio 3.61 % 06/05/20 05:20 Hepatitis A IgM Ab Non-reactive (NonReactive) 06/05/20 12:10 Hep Bs Antigen Non-reactive (Negative) 06/05/20 12:10 Hep B Core IgM Ab Non-reactive (NonReactive) 06/05/20 12:10 Hepatitis C Antibody Non-reactive (NonReactive) 06/05/20 12:10 Montano/IV: Voiding Method Bedpan Active Medications - Current Medications Current Medications: Generic Name Dose Route Start Last Admin Trade Name Freq PRN Reason Stop Dose Admin Acetaminophen 650 mg 06/05/20 01:41 Acetaminophen 325 Mg Tab PO Q4H PRN Headache Sodium Chloride 100 mls @ 999 mls/hr 06/05/20 10:46 Nacl 0.9% IV NANO PRN Hypotension Insulin Human Regular 0 units 06/05/20 07:30 06/06/20 22:27 Insulin Regular, Human 100 Units/1 Ml SUB-Q 1 units ACHS MARTY Administration Protocol Morphine Sulfate 2 mg 06/05/20 01:39 06/06/20 17:46 Morphine 2 Mg/1 Ml Inj IV 2 mg Q4H PRN Administration Pain, Moderate (4-6) Ondansetron HCl 4 mg 06/05/20 01:39 Ondansetron 4 Mg/2 Ml Inj IV Q8H PRN Nausea And Vomiting Pantoprazole Sodium 40 mg 06/05/20 09:00 06/06/20 09:11 Pantoprazole 40 Mg Tab PO 40 mg QDAC MARTY Administration
[2020-06-07] MEDS: PANTOPRAZOLE 40 MG TAB PO SCH ×2 (09:32→12:23)
[2020-06-07] MEDS: INSULIN REGULAR, HUMAN 100 UNITS/1 ML SUB-Q SCH ×3 (09:32→17:13)
[2020-06-07] MEDS: EPOETIN ALFA-EPBX 10,000 UNIT/1 ML VIAL IV PRN (09:38)
[2020-06-07] MEDS ORDERED: diphenhydrAMINE 50 MG/ML VIAL ONE (12:25)
[2020-06-07] MEDS ORDERED: diphenhydrAMINE 50 MG/ML VIAL IV ONE (15:08)
[2020-06-07] MEDS ORDERED: NAPHAZOLINE/PHENIRAMINE 0.025/0.3% OPHTH SOLN 15 ML OU PRN (15:30)
[2020-06-07] MEDS ORDERED: diphenhydrAMINE 25 MG CAP PO PRN (17:18)
[2020-06-07] MEDS: diphenhydrAMINE 25 MG CAP PO PRN (17:38)
--- NOTE | 2020-06-07 18:24 | Progress Note ---
Assessment and Plan - Patient Problems (1) Fall Current Visit: Yes Status: Acute Plan to address problem: PT evaluation appreciated. Will benefit from subacute rehabilitation. Awaiting placement (2) End-stage renal disease on hemodialysis Current Visit: Yes Status: Acute Plan to address problem: Hemodialysis on a Friday, Friday and Friday schedule while in the hospital. 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 Will benefit from physical therapy. Awaiting placement at subacute rehab Subjective Date of service: 06/07/20 Principal diagnosis: End-stage renal disease Interval history: Patient seen lying in bed. She is feeling better. She had dialysis earlier with no complications. Objective - Exam Narrative Exam: Obese elderly -[place] female lying in bed in no acute distress HEENT: NCAT, pink oral mucous membrane, bilateral artificial lenses Neck: Supple, no venous distention CVS: S1S2 RRR with no murmur, rub or gallop Chest: Clear to auscultation Abdomen: Protuberant, soft, nontender, no organomegaly, bowel sounds are present Extremities: Trace edema Genitourinary deferred Skin warm and dry, no rash Neuro: Awake, alert no focal deficits - Vital Signs Vital signs: Vital Signs - 12hr 06/07/20 06/07/20 06/07/20 08:10 08:25 08:30 Temperature 98.8 F Pulse Rate 87 84 82 Respiratory 18 Rate Blood Pressure 117/60 120/56 121/59 06/07/20 06/07/20 06/07/20 08:45 09:00 09:15 Temperature Pulse Rate 80 77 81 Respiratory Rate Blood Pressure 116/58 123/56 117/58 06/07/20 06/07/20 06/07/20 09:30 09:45 10:00 Temperature Pulse Rate 80 83 78 Respiratory Rate Blood Pressure 109/47 119/57 124/61 06/07/20 06/07/20 06/07/20 10:15 10:30 10:45 Temperature Pulse Rate 78 87 79 Respiratory Rate Blood Pressure 115/55 108/54 104/44 06/07/20 06/07/20 06/07/20 11:00 11:15 11:30 Temperature Pulse Rate 89 84 75 Respiratory Rate Blood Pressure 110/54 113/55 119/48 06/07/20 11:45 Temperature 98.7 F Pulse Rate 90 Respiratory 18 Rate Blood Pressure 127/63 - Lab 06/04/20 23:11 06/04/20 23:11 Most recent lab results Calcium 8.7 mg/dL (8.4-10.2) 06/04/20 23:11 Magnesium 2.40 mg/dL (1.7-2.3) H 06/04/20 23:11 Medications & Allergies - Medications Allergies/Adverse Reactions: Allergies fesoterodine fumarate [From Toviaz] Allergy (Verified 06/30/15 15:10) Unknown Penicillins Adverse Reaction (Verified 01/27/14 21:00) Unknown Home Medications: Home Medications Medication Instructions Recorded Confirmed Last Taken Type Furosemide [Lasix TAB] 20 mg PO QDAY 06/30/15 06/05/20 Unknown History Omeprazole [PriLOSEC] 40 mg PO QDAY 06/30/15 06/05/20 Unknown History Budesonide/Formoterol Fumarate 10.2 gm IH BID 06/05/20 06/05/20 Unknown History [Symbicort 80-4.5 Mcg Inhaler] Fluticasone [Flonase] 2 spray NS QDAY 06/05/20 06/05/20 Unknown History Insulin Glargine [Lantus VIAL] 60 units SUB-Q HS 06/05/20 06/05/20 Unknown History Lidocaine/Prilocaine [Lido-Prilo 1 each TP 3XW 06/05/20 06/05/20 Unknown History Mg Pack] Lovastatin [Altoprev] 20 mg PO DAILY 06/05/20 06/05/20 Unknown History Vit B Comp C/Folic Acid/Vit D3 1 each PO DAILY 06/05/20 06/05/20 Unknown History [Dialyvite 800 Plus D Wafer] Active Medications: Generic Name Dose Route Start Last Admin Trade Name Freq PRN Reason Stop Dose Admin Acetaminophen 650 mg 06/05/20 01:41 Acetaminophen 325 Mg Tab PO Q4H PRN Headache Diphenhydramine HCl 25 mg 06/07/20 18:00 06/07/20 17:38 Diphenhydramine 25 Mg Cap PO 25 mg Q6H PRN Administration Itching Sodium Chloride 100 mls @ 999 mls/hr 06/05/20 10:46 Nacl 0.9% IV NANO PRN Hypotension Insulin Human Regular 0 units 06/05/20 07:30 06/07/20 17:13 Insulin Regular, Human 100 Units/1 Ml SUB-Q 2 units ACHS MARTY Administration Protocol Morphine Sulfate 2 mg 06/05/20 01:39 06/06/20 17:46 Morphine 2 Mg/1 Ml Inj IV 2 mg Q4H PRN Administration Pain, Moderate (4-6) Naphazoline HCl/Pheniramine Maleate 2 drops 06/07/20 15:30 06/07/20 15:39 Naphazoline/Pheniramine 0.025/0.3% Ophth Soln 15 Ml OU 2 drops Q6H PRN Administration Dry Eye(s) Ondansetron HCl 4 mg 06/05/20 01:39 06/07/20 12:23 Ondansetron 4 Mg/2 Ml Inj IV 4 mg Q8H PRN Administration Nausea And Vomiting Pantoprazole Sodium 40 mg 06/05/20 09:00 06/07/20 12:23 Pantoprazole 40 Mg Tab PO 40 mg QDAC MARTY Administration
[2020-06-08] MEDS: INSULIN REGULAR, HUMAN 100 UNITS/1 ML SUB-Q SCH ×5 (00:16→22:43)
[2020-06-08] MEDS: MORPHINE 2 MG/1 ML INJ IV PRN (01:30)
[2020-06-08] MEDS: diphenhydrAMINE 25 MG CAP PO PRN ×2 (04:59→14:30)
[2020-06-08] MEDS: PANTOPRAZOLE 40 MG TAB PO SCH (09:47)
--- NOTE | 2020-06-08 11:43 | Discharge Summary ---
Providers - Providers Date of Admission: 06/05/20 16:24 Date of discharge: 06/08/20 Attending physician: JENNYFER JIMENEZ 06/04/20 22:15 Consult to Physician [CONS] Urgent Comment: Dr. Peter spoke with Dr. Bender @ 0022 Consulting Provider: JASON BENDER Physician Instructions: Reason For Exam: esrd 06/05/20 01:42 Consult to Case Management [CONS] Routine Services Needed at Discharge: Rivet Tester Notified:: cm notified Additional Physician Instructions: NEED FOR PLACEMENT 06/05/20 10:48 Consult to Case Management [CONS] Routine Services Needed at Discharge: Other Notified:: cm notified Comment:: Arrange transportation to and fro Dialysis 06/05/20 10:57 Physical Therapy Evaluation and Treat [CONS] Stat Comment: Reason For Exam: Eval and treat 06/05/20 12:16 Consult to Wound/ET Nurse [CONS] Routine Reason For Exam: R upper thigh scab. R heel non-blanchable redness. Primary care physician: NICOLAS PEREZ Hospitalization Reason for admission: s/p fall Condition: Fair Hospital course: 80-year-old female who reportedly had a fall at home and was unable to ambulate subsequent to the fall causing her to be bedridden along with inability to attend her hemodialysis. Patient reportedly remained in her house alone unable to care for herself. Patient was noted to have ESRD in need of hemodialysis which was resumed upon hospitalization. Patient had extensive radiology films done of the leg where she complained of pain. Patient had a negative pelvis, knee and femur x-ray. CT scan was also negative. Physical therapy evaluated patient and recommended subacute rehab. Patient has been accepted to [facility] and will be discharged today. Dedicated discharge time 35 minutes Disposition: [id number]/[id number] SNF [facility] Final Discharge Diagnosis (Prints w/discharge instructions): ESRD, deconditioning, diabetes mellitus type 2, general debility. 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 or end stage renal disease Status: Acute (7) Right leg pain Status: Acute (8) Type 2 diabetes mellitus with diabetic nephropathy Status: Acute Core Measure Documentation - Palliative Care Palliative Care/ Comfort Measures: Not Applicable - Core Measures Any of the following diagnoses?: none Exam - Constitutional Vitals: Temp Pulse Resp BP Pulse Ox 98.1 F 90 20 119/55 97 06/08/20 05:10 06/08/20 05:10 06/08/20 05:02 06/08/20 05:02 06/07/20 23:00 General appearance: Present: no acute distress, well-nourished - EENT Eyes: Present: PERRL ENT: hearing intact, clear oral mucosa - Neck Neck: Present: supple, normal ROM - Respiratory Respiratory effort: normal Respiratory: bilateral: CTA - Cardiovascular Heart Sounds: Present: S1 & S2. Absent: rub, click - Extremities Extremities: pulses symmetrical, No edema Peripheral Pulses: within normal limits - Abdominal General gastrointestinal: Present: soft, non-tender, non-distended, normal bowel sounds Female genitourinary: Present: normal - Integumentary Integumentary: Present: clear, warm, dry - Musculoskeletal Musculoskeletal: gait normal, strength equal bilaterally - Psychiatric Psychiatric: appropriate mood/affect, intact judgment & insight - Neurologic Neurologic: CNII-XII intact, moves all extremities Plan Activity: advance as tolerated Weight Bearing Status: Weight Bear as Tolerated Diet: diabetic Follow up with: NICOLAS PEREZ MD [Primary Care Provider] - 3-5 Days
--- NOTE | 2020-06-08 12:57 | Progress Note ---
Assessment and Plan - Patient Problems (1) Fall Current Visit: Yes Status: Acute Plan to address problem: PT evaluation appreciated. Will benefit from subacute rehabilitation. Awaiting placement (2) End-stage renal disease on hemodialysis Current Visit: Yes Status: Acute Plan to address problem: Hemodialysis on a Friday, Friday and Friday schedule while in the hospital. (3) Anemia in end-stage renal disease Current Visit: Yes Status: Acute Plan to address problem: Give erythropoietin on dialysis and follow-up hemoglobin (4) Type 2 diabetes mellitus with diabetic nephropathy Current Visit: Yes Status: Acute Plan to address problem: Blood sugar management by primary attending (5) Hypertensive chronic kidney disease with stage 5 chronic kidney disease or end stage renal disease Current Visit: Yes Status: Acute Plan to address problem: Follow-up blood pressure on current medications Subjective Date of service: 06/08/20 Principal diagnosis: End-stage renal disease Interval history: Pt awake, alert, in no acute distress except diffuse itching, benadryl given. HD well tolerated yesterday Objective - Vital Signs Vital signs: Vital Signs - 12hr 06/08/20 06/08/20 06/08/20 01:30 05:02 05:10 Temperature 98.1 F Pulse Rate 90 Respiratory 20 20 Rate Blood Pressure 119/55 - General Appearance General appearance: well-developed, well-nourished, appears stated age EENT: ATNC, PERRL, mucous membranes moist Neck: no JVD Respiratory: Present: Clear to Ascultation Cardiology: regular, S1S2 Gastrointestinal: normoactive bowel sounds Integumentary: no rash, other (no edema ) Neurologic: no focal deficit, alert and oriented x3, strength 5/5, CN 3-12 intact Psychiatric: mood/affect appropriate, cooperative - Lab 06/04/20 23:11 06/04/20 23:11 Most recent lab results Calcium 8.7 mg/dL (8.4-10.2) 06/04/20 23:11 Magnesium 2.40 mg/dL (1.7-2.3) H 06/04/20 23:11 Medications & Allergies - Medications Allergies/Adverse Reactions: Allergies fesoterodine fumarate [From Toviaz] Allergy (Verified 06/30/15 15:10) Unknown Penicillins Adverse Reaction (Verified 01/27/14 21:00) Unknown Home Medications: Home Medications Medication Instructions Recorded Confirmed Last Taken Type Furosemide [Lasix TAB] 20 mg PO QDAY 06/30/15 06/05/20 Unknown History Omeprazole [PriLOSEC] 40 mg PO QDAY 06/30/15 06/05/20 Unknown History Budesonide/Formoterol Fumarate 10.2 gm IH BID 06/05/20 06/05/20 Unknown History [Symbicort 80-4.5 Mcg Inhaler] Fluticasone [Flonase] 2 spray NS QDAY 06/05/20 06/05/20 Unknown History Insulin Glargine [Lantus VIAL] 60 units SUB-Q HS 06/05/20 06/05/20 Unknown History Lidocaine/Prilocaine [Lido-Prilo 1 each TP 3XW 06/05/20 06/05/20 Unknown History Mg Pack] Lovastatin [Altoprev] 20 mg PO DAILY 06/05/20 06/05/20 Unknown History Vit B Comp C/Folic Acid/Vit D3 1 each PO DAILY 06/05/20 06/05/20 Unknown History [Dialyvite 800 Plus D Wafer] Epoetin Nestor-Epbx 10,000 Unit 10,000 unit IV NANO PRN vial 06/08/20 Unknown Rx [Retacrit] Pantoprazole [Protonix TAB] 40 mg PO QDAC tablet 06/08/20 Unknown Rx Active Medications: Generic Name Dose Route Start Last Admin Trade Name Freq PRN Reason Stop Dose Admin Acetaminophen 650 mg 06/05/20 01:41 Acetaminophen 325 Mg Tab PO Q4H PRN Headache Diphenhydramine HCl 25 mg 06/07/20 18:00 06/08/20 04:59 Diphenhydramine 25 Mg Cap PO 25 mg Q6H PRN Administration Itching Sodium Chloride 100 mls @ 999 mls/hr 06/05/20 10:46 Nacl 0.9% IV NANO PRN Hypotension Insulin Human Regular 0 units 06/05/20 07:30 06/08/20 12:39 Insulin Regular, Human 100 Units/1 Ml SUB-Q 3 units ACHS MARTY Administration Protocol Morphine Sulfate 2 mg 06/05/20 01:39 06/08/20 01:30 Morphine 2 Mg/1 Ml Inj IV 2 mg Q4H PRN Administration Pain, Moderate (4-6) Naphazoline HCl/Pheniramine Maleate 2 drops 06/07/20 15:30 06/07/20 15:39 Naphazoline/Pheniramine 0.025/0.3% Ophth Soln 15 Ml OU 2 drops Q6H PRN Administration Dry Eye(s) Ondansetron HCl 4 mg 06/05/20 01:39 06/07/20 12:23 Ondansetron 4 Mg/2 Ml Inj IV 4 mg Q8H PRN Administration Nausea And Vomiting Pantoprazole Sodium 40 mg 06/05/20 09:00 06/08/20 09:47 Pantoprazole 40 Mg Tab PO 40 mg QDAC MARTY Administration
[2020-06-09] MEDS: diphenhydrAMINE 25 MG CAP PO PRN ×3 (00:20→16:13)
[2020-06-09] MEDS: PANTOPRAZOLE 40 MG TAB PO SCH (08:13)
--- NOTE | 2020-06-09 09:08 | Progress Note ---
Assessment and Plan Assessment and plan: ESRD. Right leg pain Diabetes mellitus type 2 S/p falls. 06/06. Continue hemodialysis per nephrology. Accu-Cheks and sliding scale insulin. Await PT evaluation for placement. 06/07. Continue hemodialysis per nephrology. Physical therapy recommends subacute rehab. Will discuss with case management placement options. 06/08. Continue hemodialysis per nephrology. Physical therapy recommends sub acute rehab. Will discuss with case management placement options. 06/09. Continue hemodialysis per nephrology. Physical therapy recommends subacute rehab. Will discuss with case management placement options. - Patient Problems (1) Anemia in end-stage renal disease Current Visit: Yes Status: Acute (2) Azotemia Current Visit: Yes Status: Acute (3) Debility Current Visit: Yes Status: Acute (4) End-stage renal disease on hemodialysis Current Visit: Yes Status: Acute (5) Fall Current Visit: Yes Status: Acute (6) Hypertensive chronic kidney disease with stage 5 chronic kidney disease or end stage renal disease Current Visit: Yes Status: Acute (7) Right leg pain Current Visit: Yes Status: Acute (8) Type 2 diabetes mellitus with diabetic nephropathy Current Visit: Yes Status: Acute History Interval history: No new issues Hospitalist Physical - Constitutional Vitals: Temp Pulse Resp BP Pulse Ox 98.4 F 83 20 123/57 98 06/09/20 04:53 06/09/20 04:53 06/09/20 04:53 06/09/20 04:53 06/09/20 04:53 General appearance: Present: no acute distress, well-nourished - EENT Eyes: Present: PERRL, EOM intact ENT: hearing intact, clear oral mucosa, dentition normal - Neck Neck: Present: supple, normal ROM - Respiratory Respiratory effort: normal Respiratory: bilateral: CTA - Cardiovascular Rhythm: regular Heart Sounds: Present: S1 & S2. Absent: gallop, rub - Extremities Extremities: no ischemia, No edema, Full ROM - Abdominal General gastrointestinal: soft, non-tender, non-distended, normal bowel sounds - Integumentary Integumentary: Present: clear, warm, dry - Neurologic Neurologic: CNII-XII intact, moves all extremities HEART Score - HEART Score Risk factors: 1-2 risk factors Troponin: Troponin T 0.080 ng/mL (0.00-0.029) H 06/05/20 12:10 Troponin: < normal limit - Critical Actions Critical Actions: 0-3 pts:0.9-1.7%risk of adverse cardiac event.Candidate for discharge Results - Labs CBC & Chem 7: 06/04/20 23:11 06/04/20 23:11 Labs: Laboratory Last Values WBC 12.0 K/mm3 (4.5-11.0) H 06/04/20 23:11 RBC 3.62 M/mm3 (3.65-5.03) L 06/04/20 23:11 Hgb 9.9 gm/dl (10.1-14.3) L 06/04/20 23:11 Hct 31.0 % (30.3-42.9) 06/04/20 23:11 MCV 86 fl (79-97) 06/04/20 23:11 MCH 27 pg (28-32) L 06/04/20 23:11 MCHC 32 % (30-34) 06/04/20 23:11 RDW 19.4 % (13.2-15.2) H 06/04/20 23:11 Plt Count 319 K/mm3 (140-440) 06/04/20 23:11 PT 16.3 Sec. (12.2-14.9) H 06/04/20 23:11 INR 1.31 (0.87-1.13) H 06/04/20 23:11 Sodium 139 mmol/L (137-145) 06/04/20 23:11 Potassium 3.5 mmol/L (3.6-5.0) L 06/04/20 23:11 Chloride 101.6 mmol/L (98-107) 06/04/20 23:11 Carbon Dioxide 22 mmol/L (22-30) 06/04/20 23:11 Anion Gap 19 mmol/L 06/04/20 23:11 BUN 54 mg/dL (7-17) H 06/04/20 23:11 Creatinine 8.8 mg/dL (0.6-1.2) H 06/04/20 23:11 Estimated GFR 5 ml/min 06/04/20 23:11 BUN/Creatinine Ratio 6 % 06/04/20 23:11 Glucose 222 mg/dL (65-100) H 06/04/20 23:11 POC Glucose 248 mg/dL (70-105) H 06/08/20 21:18 Calcium 8.7 mg/dL (8.4-10.2) 06/04/20 23:11 Magnesium 2.40 mg/dL (1.7-2.3) H 06/04/20 23:11 Total Bilirubin 0.20 mg/dL (0.1-1.2) 06/04/20 23:11 AST 19 units/L (5-40) 06/04/20 23:11 ALT 12 units/L (7-56) 06/04/20 23:11 Alkaline Phosphatase 89 units/L (35-129) 06/04/20 23:11 Total Creatine Kinase 42 units/L (30-135) 06/05/20 12:10 CK-MB (CK-2) 1.7 ng/mL (0.0-4.0) 06/05/20 12:10 CK-MB (CK-2) Rel Index 4.0 (0-4) 06/05/20 12:10 Troponin T 0.080 ng/mL (0.00-0.029) H 06/05/20 12:10 Total Protein 7.0 g/dL (6.3-8.2) 06/04/20 23:11 Albumin 2.7 g/dL (3.9-5) L 06/04/20 23:11 Albumin/Globulin Ratio 0.6 % 06/04/20 23:11 Triglycerides 197 mg/dL (2-149) H 06/05/20 05:20 Cholesterol 94 mg/dL (50-199) 06/05/20 05:20 LDL Cholesterol Direct 31 mg/dL (50-130) L 06/05/20 05:20 HDL Cholesterol 26 mg/dL (40-59) L 06/05/20 05:20 Cholesterol/HDL Ratio 3.61 % 06/05/20 05:20 Coronavirus (PCR) Positive (Negative) A 06/08/20 Unknown Hepatitis A IgM Ab Non-reactive (NonReactive) 06/05/20 12:10 Hep Bs Antigen Non-reactive (Negative) 06/05/20 12:10 Hep B Core IgM Ab Non-reactive (NonReactive) 06/05/20 12:10 Hepatitis C Antibody Non-reactive (NonReactive) 06/05/20 12:10 Montano/IV: Voiding Method Incontinent Active Medications - Current Medications Current Medications: Generic Name Dose Route Start Last Admin Trade Name Freq PRN Reason Stop Dose Admin Acetaminophen 650 mg 06/05/20 01:41 Acetaminophen 325 Mg Tab PO Q4H PRN Headache Diphenhydramine HCl 25 mg 06/07/20 18:00 06/09/20 06:49 Diphenhydramine 25 Mg Cap PO 25 mg Q6H PRN Administration Itching Sodium Chloride 100 mls @ 999 mls/hr 06/05/20 10:46 Nacl 0.9% IV NANO PRN Hypotension Insulin Human Regular 0 units 06/05/20 07:30 06/08/20 22:43 Insulin Regular, Human 100 Units/1 Ml SUB-Q 2 units ACHS MARTY Administration Protocol Morphine Sulfate 2 mg 06/05/20 01:39 06/08/20 01:30 Morphine 2 Mg/1 Ml Inj IV 2 mg Q4H PRN Administration Pain, Moderate (4-6) Naphazoline HCl/Pheniramine Maleate 2 drops 06/07/20 15:30 06/07/20 15:39 Naphazoline/Pheniramine 0.025/0.3% Ophth Soln 15 Ml OU 2 drops Q6H PRN Administration Dry Eye(s) Ondansetron HCl 4 mg 06/05/20 01:39 06/07/20 12:23 Ondansetron 4 Mg/2 Ml Inj IV 4 mg Q8H PRN Administration Nausea And Vomiting Pantoprazole Sodium 40 mg 06/05/20 09:00 06/09/20 08:13 Pantoprazole 40 Mg Tab PO 40 mg QDAC MARTY Administration
[2020-06-09] MEDS: INSULIN REGULAR, HUMAN 100 UNITS/1 ML SUB-Q SCH ×3 (10:30→19:05)
[2020-06-09] MEDS: EPOETIN ALFA-EPBX 10,000 UNIT/1 ML VIAL IV PRN (12:55)
--- NOTE | 2020-06-09 15:25 | Progress Note ---
Assessment and Plan - Patient Problems (1) End-stage renal disease on hemodialysis Current Visit: Yes Status: Acute Plan to address problem: Hemodialysis on a Friday, Friday and Friday schedule while in the hospital. (2) Fall Current Visit: Yes Status: Acute Plan to address problem: PT evaluation appreciated. Will benefit from subacute rehabilitation. Awaiting placement (3) Anemia in end-stage renal disease Current Visit: Yes Status: Acute Plan to address problem: Give erythropoietin on dialysis and follow-up hemoglobin (4) Type 2 diabetes mellitus with diabetic nephropathy Current Visit: Yes Status: Acute Plan to address problem: Blood sugar management by primary attending (5) Hypertensive chronic kidney disease with stage 5 chronic kidney disease or end stage renal disease Current Visit: Yes Status: Acute Plan to address problem: Follow-up blood pressure on current medications Subjective Date of service: 06/09/20 Principal diagnosis: End-stage renal disease Interval history: Patient was not examined at the bedside today due to personal protective equipment preservation during the - pandemic Objective - Exam Narrative Exam: Patient was not examined at the bedside today due to personal protective equipment preservation during the pandemic - Vital Signs Vital signs: Vital Signs - 12hr 06/09/20 06/09/20 06/09/20 04:53 10:30 10:50 Temperature 98.4 F 98.4 F Pulse Rate 83 83 86 Respiratory 20 18 Rate Blood Pressure 123/57 136/69 160/69 O2 Sat by Pulse 98 Oximetry 06/09/20 06/09/20 06/09/20 11:00 11:15 11:30 Temperature Pulse Rate 83 82 86 Respiratory Rate Blood Pressure 150/69 142/72 136/76 O2 Sat by Pulse Oximetry 06/09/20 06/09/20 06/09/20 11:45 12:00 12:15 Temperature Pulse Rate 88 86 88 Respiratory Rate Blood Pressure 140/68 135/69 140/69 O2 Sat by Pulse Oximetry 06/09/20 06/09/20 06/09/20 12:30 12:45 13:00 Temperature Pulse Rate 87 89 89 Respiratory Rate Blood Pressure 142/68 132/72 139/72 O2 Sat by Pulse Oximetry 06/09/20 06/09/20 06/09/20 13:15 13:30 13:45 Temperature Pulse Rate 92 H 92 H 73 Respiratory Rate Blood Pressure 139/73 135/75 133/68 O2 Sat by Pulse Oximetry 06/09/20 06/09/20 06/09/20 14:00 14:20 14:40 Temperature 98.4 F Pulse Rate 73 74 79 Respiratory 18 Rate Blood Pressure 133/69 134/68 146/73 O2 Sat by Pulse Oximetry - Lab 06/04/20 23:11 06/04/20 23:11 Most recent lab results Calcium 8.7 mg/dL (8.4-10.2) 06/04/20 23:11 Magnesium 2.40 mg/dL (1.7-2.3) H 06/04/20 23:11 Medications & Allergies - Medications Allergies/Adverse Reactions: Allergies fesoterodine fumarate [From Toviaz] Allergy (Verified 06/30/15 15:10) Unknown Penicillins Adverse Reaction (Verified 01/27/14 21:00) Unknown Home Medications: Home Medications Medication Instructions Recorded Confirmed Last Taken Type Furosemide [Lasix TAB] 20 mg PO QDAY 06/30/15 06/05/20 Unknown History Omeprazole [PriLOSEC] 40 mg PO QDAY 06/30/15 06/05/20 Unknown History Budesonide/Formoterol Fumarate 10.2 gm IH BID 06/05/20 06/05/20 Unknown History [Symbicort 80-4.5 Mcg Inhaler] Fluticasone [Flonase] 2 spray NS QDAY 06/05/20 06/05/20 Unknown History Insulin Glargine [Lantus VIAL] 60 units SUB-Q HS 06/05/20 06/05/20 Unknown Hi story Lidocaine/Prilocaine [Lido-Prilo 1 each TP 3XW 06/05/20 06/05/20 Unknown History Mg Pack] Lovastatin [Altoprev] 20 mg PO DAILY 06/05/20 06/05/20 Unknown History Vit B Comp C/Folic Acid/Vit D3 1 each PO DAILY 06/05/20 06/05/20 Unknown History [Dialyvite 800 Plus D Wafer] Epoetin Nestor-Epbx 10,000 Unit 10,000 unit IV NANO PRN vial 06/08/20 Unknown Rx [Retacrit] Pantoprazole [Protonix TAB] 40 mg PO QDAC tablet 06/08/20 Unknown Rx Active Medications: Generic Name Dose Route Start Last Admin Trade Name Freq PRN Reason Stop Dose Admin Acetaminophen 650 mg 06/05/20 01:41 Acetaminophen 325 Mg Tab PO Q4H PRN Headache Diphenhydramine HCl 25 mg 06/07/20 18:00 06/09/20 06:49 Diphenhydramine 25 Mg Cap PO 25 mg Q6H PRN Administration Itching Sodium Chloride 100 mls @ 999 mls/hr 06/05/20 10:46 Nacl 0.9% IV NANO PRN Hypotension Insulin Human Regular 0 units 06/05/20 07:30 06/09/20 12:56 Insulin Regular, Human 100 Units/1 Ml SUB-Q Not Given ACHS [facility] Protocol Morphine Sulfate 2 mg 06/05/20 01:39 06/08/20 01:30 Morphine 2 Mg/1 Ml Inj IV 2 mg Q4H PRN Administration Pain, Moderate (4-6) Naphazoline HCl/Pheniramine Maleate 2 drops 06/07/20 15:30 06/07/20 15:39 Naphazoline/Pheniramine 0.025/0.3% Ophth Soln 15 Ml OU 2 drops Q6H PRN Administration Dry Eye(s) Ondansetron HCl 4 mg 06/05/20 01:39 06/07/20 12:23 Ondansetron 4 Mg/2 Ml Inj IV 4 mg Q8H PRN Administration Nausea And Vomiting Pantoprazole Sodium 40 mg 06/05/20 09:00 06/09/20 08:13 Pantoprazole 40 Mg Tab PO 40 mg QDAC MARTY Administration
[2020-06-10] MEDS: INSULIN REGULAR, HUMAN 100 UNITS/1 ML SUB-Q SCH ×5 (00:03→21:32)
[2020-06-10] MEDS: diphenhydrAMINE 25 MG CAP PO PRN ×3 (03:05→16:55)
[2020-06-10] MEDS: PANTOPRAZOLE 40 MG TAB PO SCH (08:43)
[2020-06-10] MEDS: MORPHINE 2 MG/1 ML INJ IV PRN (09:02)
--- NOTE | 2020-06-10 10:18 | Progress Note ---
Assessment and Plan Assessment and plan: ESRD. Right leg pain Diabetes mellitus type 2 S/p falls. 06/06. Continue hemodialysis per nephrology. Accu-Cheks and sliding scale insulin. Await PT evaluation for placement. 06/07. Continue hemodialysis per nephrology. Physical therapy recommends subacute rehab. Will discuss with case management placement options. 06/08. Continue hemodialysis per nephrology. Physical therapy recommends sub acute rehab. Will discuss with case management placement options. 06/09. Case management notes data recovery planner received call from Orquidea tyler [facility] and informed hemoglobin need to be 7.0 and above within 72 hrs. I am unfamiliar and unaware of any noted criteria. Check a CBC today. - Patient Problems (1) Anemia in end-stage renal disease Current Visit: Yes Status: Acute (2) Azotemia Current Visit: Yes Status: Acute (3) Debility Current Visit: Yes Status: Acute (4) End-stage renal disease on hemodialysis Current Visit: Yes Status: Acute (5) Fall Current Visit: Yes Status: Acute (6) Hypertensive chronic kidney disease with stage 5 chronic kidney disease or end stage renal disease Current Visit: Yes Status: Acute (7) Right leg pain Current Visit: Yes Status: Acute (8) Type 2 diabetes mellitus with diabetic nephropathy Current Visit: Yes Status: Acute History Interval history: No new issues Hospitalist Physical - Constitutional Vitals: Temp Pulse Resp BP Pulse Ox 97.9 F 80 19 129/58 96 06/10/20 05:13 06/10/20 05:13 06/10/20 05:13 06/10/20 05:13 06/10/20 05:13 General appearance: Present: no acute distress, well-nourished - EENT Eyes: Present: PERRL, EOM intact ENT: hearing intact, clear oral mucosa, dentition normal - Neck Neck: Present: supple, normal ROM - Respiratory Respiratory effort: normal Respiratory: bilateral: CTA - Cardiovascular Rhythm: regular Heart Sounds: Present: S1 & S2. Absent: gallop, rub - Extremities Extremities: no ischemia, No edema, Full ROM - Abdominal General gastrointestinal: soft, non-tender, non-distended, normal bowel sounds - Integumentary Integumentary: Present: clear, warm, dry - Neurologic Neurologic: CNII-XII intact, moves all extremities HEART Score - HEART Score Risk factors: 1-2 risk factors Troponin: Troponin T 0.080 ng/mL (0.00-0.029) H 06/05/20 12:10 Troponin: < normal limit - Critical Actions Critical Actions: 0-3 pts:0.9-1.7%risk of adverse cardiac event.Candidate for discharge Results - Labs CBC & Chem 7: 06/04/20 23:11 06/04/20 23:11 Labs: Laboratory Last Values WBC 12.0 K/mm3 (4.5-11.0) H 06/04/20 23:11 RBC 3.62 M/mm3 (3.65-5.03) L 06/04/20 23:11 Hgb 9.9 gm/dl (10.1-14.3) L 06/04/20 23:11 Hct 31.0 % (30.3-42.9) 06/04/20 23:11 MCV 86 fl (79-97) 06/04/20 23:11 MCH 27 pg (28-32) L 06/04/20 23:11 MCHC 32 % (30-34) 06/04/20 23:11 RDW 19.4 % (13.2-15.2) H 06/04/20 23:11 Plt Count 319 K/mm3 (140-440) 06/04/20 23:11 PT 16.3 Sec. (12.2-14.9) H 06/04/20 23:11 INR 1.31 (0.87-1.13) H 06/04/20 23:11 Sodium 139 mmol/L (137-145) 06/04/20 23:11 Potassium 3.5 mmol/L (3.6-5.0) L 06/04/20 23:11 Chloride 101.6 mmol/L (98-107) 06/04/20 23:11 Carbon Dioxide 22 mmol/L (22-30) 06/04/20 23:11 Anion Gap 19 mmol/L 06/04/20 23:11 BUN 54 mg/dL (7-17) H 06/04/20 23:11 Creatinine 8.8 mg/dL (0.6-1.2) H 06/04/20 23:11 Estimated GFR 5 ml/min 06/04/20 23:11 BUN/Creatinine Ratio 6 % 06/04/20 23:11 Glucose 222 mg/dL (65-100) H 06/04/20 23:11 POC Glucose 278 mg/dL (70-105) H 06/09/20 23:59 Calcium 8.7 mg/dL (8.4-10.2) 06/04/20 23:11 Magnesium 2.40 mg/dL (1.7-2.3) H 06/04/20 23:11 Total Bilirubin 0.20 mg/dL (0.1-1.2) 06/04/20 23:11 AST 19 units/L (5-40) 06/04/20 23:11 ALT 12 units/L (7-56) 06/04/20 23:11 Alkaline Phosphatase 89 units/L (35-129) 06/04/20 23:11 Total Creatine Kinase 42 units/L (30-135) 06/05/20 12:10 CK-MB (CK-2) 1.7 ng/mL (0.0-4.0) 06/05/20 12:10 CK-MB (CK-2) Rel Index 4.0 (0-4) 06/05/20 12:10 Troponin T 0.080 ng/mL (0.00-0.029) H 06/05/20 12:10 Total Protein 7.0 g/dL (6.3-8.2) 06/04/20 23:11 Albumin 2.7 g/dL (3.9-5) L 06/04/20 23:11 Albumin/Globulin Ratio 0.6 % 06/04/20 23:11 Triglycerides 197 mg/dL (2-149) H 06/05/20 05:20 Cholesterol 94 mg/dL (50-199) 06/05/20 05:20 LDL Cholesterol Direct 31 mg/dL (50-130) L 06/05/20 05:20 HDL Cholesterol 26 mg/dL (40-59) L 06/05/20 05:20 Cholesterol/HDL Ratio 3.61 % 06/05/20 05:20 Coronavirus (PCR) Positive (Negative) A 06/08/20 Unknown Hepatitis A IgM Ab Non-reactive (NonReactive) 06/05/20 12:10 Hep Bs Antigen Non-reactive (Negative) 06/05/20 12:10 Hep B Core IgM Ab Non-reactive (NonReactive) 06/05/20 12:10 Hepatitis C Antibody Non-reactive (NonReactive) 06/05/20 12:10 [place]/IV: Voiding Method Incontinent Active Medications - Current Medications Current Medications: Generic Name Dose Route Start Last Admin Trade Name Freq PRN Reason Stop Dose Admin Acetaminophen 650 mg 06/05/20 01:41 Acetaminophen 325 Mg Tab PO Q4H PRN Headache Diphenhydramine HCl 25 mg 06/07/20 18:00 06/10/20 09:02 Diphenhydramine 25 Mg Cap PO 25 mg Q6H PRN Administration Itching Sodium Chloride 100 mls @ 999 mls/hr 06/05/20 10:46 Nacl 0.9% IV NANO PRN Hypotension Insulin Human Regular 0 units 06/05/20 07:30 06/10/20 08:19 Insulin Regular, Human 100 Units/1 Ml SUB-Q 2 units ACHS MARTY Administration Protocol Morphine Sulfate 2 mg 06/05/20 01:39 06/10/20 09:02 Morphine 2 Mg/1 Ml Inj IV 2 mg Q4H PRN Administration Pain, Moderate (4-6) Naphazoline HCl/Pheniramine Maleate 2 drops 06/07/20 15:30 06/07/20 15:39 Naphazoline/Pheniramine 0.025/0.3% Ophth Soln 15 Ml OU 2 drops Q6H PRN Administration Dry Eye(s) Ondansetron HCl 4 mg 06/05/20 01:39 06/07/20 12:23 Ondansetron 4 Mg/2 Ml Inj IV 4 mg Q8H PRN Administration Nausea And Vomiting Pantoprazole Sodium 40 mg 06/05/20 09:00 06/10/20 08:43 Pantoprazole 40 Mg Tab PO 40 mg QDAC MARTY Administration
[2020-06-10] MEDS: ALBUTEROL 2.5 MG/3 ML NEBU IH PRN (10:50)
[2020-06-10 10:51] LABS: Basophils # (Auto) 0.1 K/mm3 (0.0-0.1); Basophils % (Auto) 0.8 % (0.0-1.8); Eosinophils # (Auto) 0.1 K/mm3 (0.0-0.4); Eosinophils % (Auto) 1.7 % (0.0-4.3); Hemoglobin 9.8 gm/dl (10.1-14.3); Lymphocytes # (Auto) 0.6 K/mm3 (1.2-5.4); Lymphocytes % (Auto) 8.3 % (13.4-35.0); Mean Corpuscular HGB Conc 32 % (30-34); Mean Corpuscular Volume 88 fl (79-97); Monocytes # (Auto) 1.2 K/mm3 (0.0-0.8); Monocytes % (Auto) 15.9 % (0.0-7.3); Platelet Count 178 K/mm3 (140-440); Red Blood Count 3.53 M/mm3 (3.65-5.03); Red Cell Distribution Width 20.2 % (13.2-15.2)
--- NOTE | 2020-06-10 11:31 | Progress Note ---
Assessment and Plan - Patient Problems (1) End-stage renal disease on hemodialysis Current Visit: Yes Status: Acute Plan to address problem: Continue on inpatient Friday/ Friday /Friday hemodialysis schedule. (2) Fall Current Visit: Yes Status: Acute Plan to address problem: Appreciate recommendations and evaluation by physical therapy. (3) Hypertensive chronic kidney disease with stage 5 chronic kidney disease or end stage renal disease Current Visit: Yes Status: Chronic Plan to address problem: Monitor blood pressures on current regimen. (4) Type 2 diabetes mellitus with diabetic nephropathy Current Visit: Yes Status: Chronic Plan to address problem: Diabetes management per primary attending. (5) Anemia in end-stage renal disease Current Visit: Yes Status: Acute Plan to address problem: WILLIAMS therapy with hemodialysis. Subjective Date of service: 06/10/20 Principal diagnosis: End-stage renal disease Interval history: No acute issues reported overnight per documentation. Received hemodialysis yesterday and apparently tolerated well per documentation. Objective - Exam Narrative Exam: Patient not directly examined secondary to preservation of personal protective equipment. - Vital Signs Vital signs: Vital Signs - 12hr 06/10/20 06/10/20 06/10/20 00:01 05:13 10:51 Temperature 98.0 F 97.9 F Pulse Rate 89 80 Respiratory 18 19 Rate Blood Pressure 132/63 129/58 O2 Sat by Pulse 98 96 100 Oximetry - Lab 06/10/20 10:29 06/04/20 23:11 Most recent lab results Calcium 8.7 mg/dL (8.4-10.2) 06/04/20 23:11 Magnesium 2.40 mg/dL (1.7-2.3) H 06/04/20 23:11 Medications & Allergies - Medications Allergies/Adverse Reactions: Allergies fesoterodine fumarate [From Toviaz] Allergy (Verified 06/30/15 15:10) Unknown Penicillins Adverse Reaction (Verified 01/27/14 21:00) Unknown Home Medications: Home Medications Medication Instructions Recorded Confirmed Last Taken Type Furosemide [Lasix TAB] 20 mg PO QDAY 06/30/15 06/05/20 Unknown History Omeprazole [PriLOSEC] 40 mg PO QDAY 06/30/15 06/05/20 Unknown History Budesonide/Formoterol Fumarate 10.2 gm IH BID 06/05/20 06/05/20 Unknown History [Symbicort 80-4.5 Mcg Inhaler] Fluticasone [Flonase] 2 spray NS QDAY 06/05/20 06/05/20 Unknown History Insulin Glargine [Lantus VIAL] 60 units SUB-Q HS 06/05/20 06/05/20 Unknown History Lidocaine/Prilocaine [Lido-Prilo 1 each TP 3XW 06/05/20 06/05/20 Unknown History Mg Pack] Lovastatin [Altoprev] 20 mg PO DAILY 06/05/20 06/05/20 Unknown History Vit B Comp C/Folic Acid/Vit D3 1 each PO DAILY 06/05/20 06/05/20 Unknown History [Dialyvite 800 Plus D Wafer] Epoetin Nestor-Epbx 10,000 Unit 10,000 unit IV NANO PRN vial 06/08/20 Unknown Rx [Retacrit] Pantoprazole [Protonix TAB] 40 mg PO QDAC tablet 06/08/20 Unknown Rx Active Medications: Generic Name Dose Route Start Last Admin Trade Name Freq PRN Reason Stop Dose Admin Acetaminophen 650 mg 06/05/20 01:41 Acetaminophen 325 Mg Tab PO Q4H PRN Headache Albuterol 2.5 mg 06/10/20 11:00 Albuterol 2.5 Mg/3 Ml Nebu IH Q4H PRN Shortness Of Breath Diphenhydramine HCl 25 mg 06/07/20 18:00 06/10/20 09:02 Diphenhydramine 25 Mg Cap PO 25 mg Q6H PRN Administration Itching Sodium Chloride 100 mls @ 999 mls/hr 06/05/20 10:46 Nacl 0.9% IV NANO PRN Hypotension Insulin Human Regular 0 units 06/05/20 07:30 06/10/20 08:19 Insulin Regular, Human 100 Units/1 Ml SUB-Q 2 units ACHS MARTY Administration Protocol Morphine Sulfate 2 mg 06/05/20 01:39 06/10/20 09:02 Morphine 2 Mg/1 Ml Inj IV 2 mg Q4H PRN Administration Pain, Moderate (4-6) Naphazoline HCl/Pheniramine Maleate 2 drops 06/07/20 15:30 06/07/20 15:39 Naphazoline/Pheniramine 0.025/0.3% Ophth Soln 15 Ml OU 2 drops Q6H PRN Administration Dry Eye(s) Ondansetron HCl 4 mg 06/05/20 01:39 06/07/20 12:23 Ondansetron 4 Mg/2 Ml Inj IV 4 mg Q8H PRN Administration Nausea And Vomiting Pantoprazole Sodium 40 mg 06/05/20 09:00 06/10/20 08:43 Pantoprazole 40 Mg Tab PO 40 mg QDAC MARTY Administration
[2020-06-11] MEDS: diphenhydrAMINE 25 MG CAP PO PRN ×2 (02:33→17:48)
[2020-06-11] MEDS: ALBUTEROL 2.5 MG/3 ML NEBU IH PRN (03:19)
[2020-06-11] MEDS: PANTOPRAZOLE 40 MG TAB PO SCH (07:44)
[2020-06-11] MEDS: INSULIN REGULAR, HUMAN 100 UNITS/1 ML SUB-Q SCH ×4 (08:29→22:11)
--- NOTE | 2020-06-11 09:03 | Progress Note ---
Assessment and Plan Assessment and plan: ESRD. Right leg pain Diabetes mellitus type 2 S/p falls. 06/06. Continue hemodialysis per nephrology. Accu-Cheks and sliding scale insulin. Await PT evaluation for placement. 06/07. Continue hemodialysis per nephrology. Physical therapy recommends subacute rehab. Will discuss with case management placement options. 06/08. Continue hemodialysis per nephrology. Physical therapy recommends sub acute rehab. Will discuss with case management placement options. 06/09. Case management notes maintenance planner received call from Orquidea tyler [facility] and informed hemoglobin need to be 7.0 and above within 72 hrs. I am unfamiliar and unaware of any noted criteria. Check a CBC today. 06/10. Still unclear why the patient did not discharge. Will discuss with case management. - Patient Problems (1) Anemia in end-stage renal disease Current Visit: Yes Status: Acute (2) Azotemia Current Visit: Yes Status: Acute (3) Debility Current Visit: Yes Status: Acute (4) End-stage renal disease on hemodialysis Current Visit: Yes Status: Acute (5) Fall Current Visit: Yes Status: Acute (6) Hypertensive chronic kidney disease with stage 5 chronic kidney disease or end stage renal disease Current Visit: Yes Status: Chronic (7) Right leg pain Current Visit: Yes Status: Acute (8) Type 2 diabetes mellitus with diabetic nephropathy Current Visit: Yes Status: Chronic History Interval history: No new issues Hospitalist Physical - Constitutional Vitals: Temp Pulse Resp BP Pulse Ox 98.4 F 95 H 20 125/62 90 06/11/20 05:45 06/11/20 05:45 06/11/20 05:45 06/11/20 05:45 06/11/20 05:45 General appearance: Present: no acute distress, well-nourished - EENT Eyes: Present: PERRL, EOM intact ENT: hearing intact, clear oral mucosa, dentition normal - Neck Neck: Present: supple, normal ROM - Respiratory Respiratory effort: normal Respiratory: bilateral: CTA - Cardiovascular Rhythm: regular Heart Sounds: Present: S1 & S2. Absent: gallop, rub - Extremities Extremities: no ischemia, No edema, Full ROM - Abdominal General gastrointestinal: soft, non-tender, non-distended, normal bowel sounds - Integumentary Integumentary: Present: clear, warm, dry - Neurologic Neurologic: CNII-XII intact, moves all extremities HEART Score - HEART Score Risk factors: 1-2 risk factors Troponin: Troponin T 0.080 ng/mL (0.00-0.029) H 06/05/20 12:10 Troponin: < normal limit - Critical Actions Critical Actions: 0-3 pts:0.9-1.7%risk of adverse cardiac event.Candidate for discharge Results - Labs CBC & Chem 7: 06/10/20 10:29 06/04/20 23:11 Labs: Laboratory Last Values WBC 7.6 K/mm3 (4.5-11.0) 06/10/20 10: RBC 3.53 M/mm3 (3.65-5.03) L 06/10/20 10: Hgb 9.8 gm/dl (10.1-14.3) L 06/10/20 10: Hct 31.0 % (30.3-42.9) 06/10/20 10: MCV 88 fl (79-97) 06/10/20 10:29 MCH 28 pg (28-32) 06/10/20 10:29 MCHC 32 % (30-34) 06/10/20 10: RDW 20.2 % (13.2-15.2) H 06/10/20 10:29 Plt Count 178 K/mm3 (140-440) 06/10/20 10:29 Lymph % (Auto) 8.3 % (13.4-35.0) L 06/10/20 10:29 [place] % (Auto) 15.9 % (0.0-7.3) H 06/10/20 10:29 Eos % (Auto) 1.7 % (0.0-4.3) 06/10/20 10:29 Baso % (Auto) 0.8 % (0.0-1.8) 06/10/20 10:29 Lymph # (Auto) 0.6 K/mm3 (1.2-5.4) L 06/10/20 10:29 [place] # (Auto) 1.2 K/mm3 (0.0-0.8) H 06/10/20 10:29 Eos # (Auto) 0.1 K/mm3 (0.0-0.4) 06/10/20 10:29 Baso # (Auto) 0.1 K/mm3 (0.0-0.1) 06/10/20 10:29 Seg Neutrophils % 73.3 % (40.0-70.0) H 06/10/20 10:29 Seg Neutrophils # 5.6 K/mm3 (1.8-7.7) 06/10/20 10:29 PT 16.3 Sec. (12.2-14.9) H 06/04/20 23:11 INR 1.31 (0.87-1.13) H 06/04/20 23:11 Sodium 139 mmol/L (137-145) 06/04/20 23:11 Potassium 3.5 mmol/L (3.6-5.0) L 06/04/20 23:11 Chloride 101.6 mmol/L (98-107) 06/04/20 23:11 Carbon Dioxide 22 mmol/L (22-30) 06/04/20 23:11 Anion Gap 19 mmol/L 06/04/20 23:11 BUN 54 mg/dL (7-17) H 06/04/20 23:11 Creatinine 8.8 mg/dL (0.6-1.2) H 06/04/20 23:11 Estimated GFR 5 ml/min 06/04/20 23:11 BUN/Creatinine Ratio 6 % 06/04/20 23:11 Glucose 222 mg/dL (65-100) H 06/04/20 23:11 POC Glucose 271 mg/dL (70-105) H 06/10/20 21:17 Calcium 8.7 mg/dL (8.4-10.2) 06/04/20 23:11 Magnesium 2.40 mg/dL (1.7-2.3) H 06/04/20 23:11 Total Bilirubin 0.20 mg/dL (0.1-1.2) 06/04/20 23:11 AST 19 units/L (5-40) 06/04/20 23:11 ALT 12 units/L (7-56) 06/04/20 23:11 Alkaline Phosphatase 89 units/L (35-129) 06/04/20 23:11 Total Creatine Kinase 42 units/L (30-135) 06/05/20 12:10 CK-MB (CK-2) 1.7 ng/mL (0.0-4.0) 06/05/20 12:10 CK-MB (CK-2) Rel Index 4.0 (0-4) 06/05/20 12:10 Troponin T 0.080 ng/mL (0.00-0.029) H 06/05/20 12:10 Total Protein 7.0 g/dL (6.3-8.2) 06/04/20 23:11 Albumin 2.7 g/dL (3.9-5) L 06/04/20 23:11 Albumin/Globulin Ratio 0.6 % 06/04/20 23:11 Triglycerides 197 mg/dL (2-149) H 06/05/20 05:20 Cholesterol 94 mg/dL (50-199) 06/05/20 05:20 LDL Cholesterol Direct 31 mg/dL (50-130) L 06/05/20 05:20 HDL Cholesterol 26 mg/dL (40-59) L 06/05/20 05:20 Cholesterol/HDL Ratio 3.61 % 06/05/20 05:20 Coronavirus (PCR) Positive (Negative) A 06/08/20 Unknown Hepatitis A IgM Ab Non-reactive (NonReactive) 06/05/20 12:10 Hep Bs Antigen Non-reactive (Negative) 06/05/20 12:10 Hep B Core IgM Ab Non-reactive (NonReactive) 06/05/20 12:10 Hepatitis C Antibody Non-reactive (NonReactive) 06/05/20 12:10 [place]/IV: Voiding Method Bedpan Active Medications - Current Medications Current Medications: Generic Name Dose Route Start Last Admin Trade Name Freq PRN Reason Stop Dose Admin Acetaminophen 650 mg 06/05/20 01:41 Acetaminophen 325 Mg Tab PO Q4H PRN Headache Albuterol 2.5 mg 06/10/20 11:00 06/11/20 03:19 Albuterol 2.5 Mg/3 Ml Nebu IH 2.5 mg Q4H PRN Administration Shortness Of Breath Arformoterol Tartrate 15 mcg 06/11/20 08:00 Arformoterol 15 Mcg/2 Ml Nebu IH Q12HRT MARTY Budesonide 0.5 mg 06/11/20 08:00 Budesonide 0.5 Mg/2 Ml Nebu IH Q12HRT MARTY Diphenhydramine HCl 25 mg 06/07/20 18:00 06/11/20 02:33 Diphenhydramine 25 Mg Cap PO 25 mg Q6H PRN Administration Itching Sodium Chloride 100 mls @ 999 mls/hr 06/05/20 10:46 Nacl 0.9% IV NANO PRN Hypotension Insulin Human Regular 0 units 06/05/20 07:30 06/11/20 08:29 Insulin Regular, Human 100 Units/1 Ml SUB-Q 1 units ACHS MARTY Administration Protocol Morphine Sulfate 2 mg 06/05/20 01:39 06/10/20 09:02 Morphine 2 Mg/1 Ml Inj IV 2 mg Q4H PRN Administration Pain, Moderate (4-6) Naphazoline HCl/Pheniramine Maleate 2 drops 06/07/20 15:30 06/07/20 15:39 Naphazoline/Pheniramine 0.025/0.3% Ophth Soln 15 Ml OU 2 drops Q6H PRN Administration Dry Eye(s) Ondansetron HCl 4 mg 06/05/20 01:39 06/07/20 12:23 Ondansetron 4 Mg/2 Ml Inj IV 4 mg Q8H PRN Administration Nausea And Vomiting Pantoprazole Sodium 40 mg 06/05/20 09:00 06/11/20 07:44 Pantoprazole 40 Mg Tab PO 40 mg QDAC MARTY Administration
[2020-06-11] MEDS: BUDESONIDE 0.5 MG/2 ML NEBU IH SCH ×2 (10:12→21:28)
[2020-06-11] MEDS: ARFORMOTEROL 15 MCG/2 ML NEBU IH SCH ×2 (10:13→21:29)
--- NOTE | 2020-06-11 12:56 | Progress Note ---
Assessment and Plan - Patient Problems (1) End-stage renal disease on hemodialysis Current Visit: Yes Status: Acute Plan to address problem: Continue on inpatient Friday/ Friday /Friday hemodialysis schedule. (2) Fall Current Visit: Yes Status: Acute Plan to address problem: Appreciate recommendations and evaluation by physical therapy. (3) Hypertensive chronic kidney disease with stage 5 chronic kidney disease or end stage renal disease Current Visit: Yes Status: Chronic Plan to address problem: Monitor blood pressures on current regimen. (4) Type 2 diabetes mellitus with diabetic nephropathy Current Visit: Yes Status: Chronic Plan to address problem: Diabetes management per primary attending. (5) Anemia in end-stage renal disease Current Visit: Yes Status: Acute Plan to address problem: WILLIAMS therapy with hemodialysis. Subjective Date of service: 06/11/20 Principal diagnosis: End-stage renal disease Interval history: No acute changes overnight. Objective - Exam Narrative Exam: Patient not directly examined secondary to preservation of personal protective equipment. - Vital Signs Vital signs: Vital Signs - 12hr 06/11/20 06/11/20 03:19 05:45 Temperature 98.4 F Pulse Rate 95 H Pulse Rate [ 90 Anterior Bilateral] Pulse Rate [ 88 Anterior] Respiratory 20 Rate Respiratory 18 Rate [Anterior Bilateral] Respiratory 20 Rate [Anterior] Blood Pressure 125/62 O2 Sat by Pulse 90 Oximetry - Lab 06/10/20 10:29 06/04/20 23:11 Most recent lab results Calcium 8.7 mg/dL (8.4-10.2) 06/04/20 23:11 Magnesium 2.40 mg/dL (1.7-2.3) H 06/04/20 23:11 Medications & Allergies - Medications Allergies/Adverse Reactions: Allergies fesoterodine fumarate [From Toviaz] Allergy (Verified 06/30/15 15:10) Unknown Penicillins Adverse Reaction (Verified 01/27/14 21:00) Unknown Home Medications: Home Medications Medication Instructions Recorded Confirmed Last Taken Type Furosemide [Lasix TAB] 20 mg PO QDAY 06/30/15 06/05/20 Unknown History Omeprazole [PriLOSEC] 40 mg PO QDAY 06/30/15 06/05/20 Unknown History Budesonide/Formoterol Fumarate 10.2 gm IH BID 06/05/20 06/05/20 Unknown History [Symbicort 80-4.5 Mcg Inhaler] Fluticasone [Flonase] 2 spray NS QDAY 06/05/20 06/05/20 Unknown History Insulin Glargine [Lantus VIAL] 60 units SUB-Q HS 06/05/20 06/05/20 Unknown History Lidocaine/Prilocaine [Lido-Prilo 1 each TP 3XW 06/05/20 06/05/20 Unknown History Mg Pack] Lovastatin [Altoprev] 20 mg PO DAILY 06/05/20 06/05/20 Unknown History Vit B Comp C/Folic Acid/Vit D3 1 each PO DAILY 06/05/20 06/05/20 Unknown History [Dialyvite 800 Plus D Wafer] Epoetin Nestor-Epbx 10,000 Unit 10,000 unit IV NANO PRN vial 06/08/20 Unknown Rx [Retacrit] Pantoprazole [Protonix TAB] 40 mg PO QDAC tablet 06/08/20 Unknown Rx Active Medications: Generic Name Dose Route Start Last Admin Trade Name Freq PRN Reason Stop Dose Admin Acetaminophen 650 mg 06/05/20 01:41 Acetaminophen 325 Mg Tab PO Q4H PRN Headache Albuterol 2.5 mg 06/10/20 11:00 06/11/20 03:19 Albuterol 2.5 Mg/3 Ml Nebu IH 2.5 mg Q4H PRN Administration Shortness Of Breath Arformoterol Tartrate 15 mcg 06/11/20 08:00 06/11/20 10:13 Arformoterol 15 Mcg/2 Ml Nebu IH 15 mcg Q12HRT MARTY Administration Budesonide 0.5 mg 06/11/20 08:00 06/11/20 10:12 Budesonide 0.5 Mg/2 Ml Nebu IH 0.5 mg Q12HRT MARTY Administration Diphenhydramine HCl 25 mg 06/07/20 18:00 06/11/20 02:33 Diphenhydramine 25 Mg Cap PO 25 mg Q6H PRN Administration Itching Sodium Chloride 100 mls @ 999 mls/hr 06/05/20 10:46 Nacl 0.9% IV NANO PRN Hypotension Insulin Human Regular 0 units 06/05/20 07:30 06/11/20 08:29 Insulin Regular, Human 100 Units/1 Ml SUB-Q 1 units ACHS MARTY Administration Protocol Morphine Sulfate 2 mg 06/05/20 01:39 06/10/20 09:02 Morphine 2 Mg/1 Ml Inj IV 2 mg Q4H PRN Administration Pain, Moderate (4-6) Naphazoline HCl/Pheniramine Maleate 2 drops 06/07/20 15:30 06/07/20 15:39 Naphazoline/Pheniramine 0.025/0.3% Ophth Soln 15 Ml OU 2 drops Q6H PRN Administration Dry Eye(s) Ondansetron HCl 4 mg 06/05/20 01:39 06/07/20 12:23 Ondansetron 4 Mg/2 Ml Inj IV 4 mg Q8H PRN Administration Nausea And Vomiting Pantoprazole Sodium 40 mg 06/05/20 09:00 06/11/20 07:44 Pantoprazole 40 Mg Tab PO 40 mg QDAC MARTY Administration
[2020-06-11] MEDS: FLUTICASONE PROPIONATE NASAL SPRAY 16 GM NS SCH (17:44)
[2020-06-12] MEDS: MORPHINE 2 MG/1 ML INJ IV PRN (05:41)
[2020-06-12] MEDS: PANTOPRAZOLE 40 MG TAB PO SCH (08:00)
[2020-06-12] MEDS: INSULIN REGULAR, HUMAN 100 UNITS/1 ML SUB-Q SCH ×3 (08:02→18:19)
[2020-06-12] MEDS: ARFORMOTEROL 15 MCG/2 ML NEBU IH SCH ×2 (08:03→21:50)
[2020-06-12] MEDS: BUDESONIDE 0.5 MG/2 ML NEBU IH SCH ×2 (08:03→21:50)
--- NOTE | 2020-06-12 08:28 | Progress Note ---
Assessment and Plan Assessment and plan: ESRD. Right leg pain Diabetes mellitus type 2 S/p falls. 06/06. Continue hemodialysis per nephrology. Accu-Cheks and sliding scale insulin. Await PT evaluation for placement. 06/07. Continue hemodialysis per nephrology. Physical therapy recommends subacute rehab. Will discuss with case management placement options. 06/08. Continue hemodialysis per nephrology. Physical therapy recommends sub acute rehab. Will discuss with case management placement options. 06/09. 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 I am unfamiliar and unaware of any noted criteria. Check a CBC today. 06/10. Still unclear why the patient did not discharge. Will discuss with case management. 06/11. Continue hemodialysis per nephrology. Physical therapy recommends subacute rehab. Will discuss with case management placement options. - Patient Problems (1) Anemia in end-stage renal disease Current Visit: Yes Status: Acute (2) Azotemia Current Visit: Yes Status: Acute (3) Debility Current Visit: Yes Status: Acute (4) End-stage renal disease on hemodialysis Current Visit: Yes Status: Acute (5) Fall Current Visit: Yes Status: Acute (6) Hypertensive chronic kidney disease with stage 5 chronic kidney disease or end stage renal disease Current Visit: Yes Status: Chronic (7) Right leg pain Current Visit: Yes Status: Acute (8) Type 2 diabetes mellitus with diabetic nephropathy Current Visit: Yes Status: Chronic History Interval history: No new issues Hospitalist Physical - Constitutional Vitals: Temp Pulse Resp BP Pulse Ox 98.2 F 95 H 24 147/73 91 06/12/20 05:33 06/12/20 05:33 06/12/20 05:33 06/12/20 05:33 06/12/20 05:33 General appearance: Present: no acute distress, well-nourished - EENT Eyes: Present: PERRL, EOM intact ENT: hearing intact, clear oral mucosa, dentition normal - Neck Neck: Present: supple, normal ROM - Respiratory Respiratory effort: normal Respiratory: bilateral: CTA - Cardiovascular Rhythm: regular Heart Sounds: Present: S1 & S2. Absent: gallop, rub - Extremities Extremities: no ischemia, No edema, Full ROM - Abdominal General gastrointestinal: soft, non-tender, non-distended, normal bowel sounds - Integumentary Integumentary: Present: clear, warm, dry - Neurologic Neurologic: CNII-XII intact, moves all extremities HEART Score - HEART Score Risk factors: 1-2 risk factors Troponin: Troponin T 0.080 ng/mL (0.00-0.029) H 06/05/20 12:10 Troponin: < normal limit - Critical Actions Critical Actions: 0-3 pts:0.9-1.7%risk of adverse cardiac event.Candidate for discharge Results - Labs CBC & Chem 7: 06/10/20 10:29 06/04/20 23:11 Labs: Laboratory Last Values WBC 7.6 K/mm3 (4.5-11.0) 06/10/20 10:29 RBC 3.53 M/mm3 (3.65-5.03) L 06/10/20 10:29 Hgb 9.8 gm/dl (10.1-14.3) L 06/10/20 10:29 Hct 31.0 % (30.3-42.9) 06/10/20 10:29 MCV 88 fl (79-97) 06/10/20 10:29 MCH 28 pg (28-32) 06/10/20 10:29 MCHC 32 % (30-34) 06/10/20 10:29 RDW 20.2 % (13.2-15.2) H 06/10/20 10:29 Plt Count 178 K/mm3 (140-440) 06/10/20 10:29 Lymph % (Auto) 8.3 % (13.4-35.0) L 06/10/20 10:29 [place] % (Auto) 15.9 % (0.0-7.3) H 06/10/20 10:29 Eos % (Auto) 1.7 % (0.0-4.3) 06/10/20 10:29 Baso % (Auto) 0.8 % (0.0-1.8) 06/10/20 10:29 Lymph # (Auto) 0.6 K/mm3 (1.2-5.4) L 06/10/20 10:29 [place] # (Auto) 1.2 K/mm3 (0.0-0.8) H 06/10/20 10:29 Eos # (Auto) 0.1 K/mm3 (0.0-0.4) 06/10/20 10:29 Baso # (Auto) 0.1 K/mm3 (0.0-0.1) 06/10/20 10:29 Seg Neutrophils % 73.3 % (40.0-70.0) H 06/10/20 10:29 Seg Neutrophils # 5.6 K/mm3 (1.8-7.7) 06/10/20 10:29 PT 16.3 Sec. (12.2-14.9) H 06/04/20 23:11 INR 1.31 (0.87-1.13) H 06/04/20 23:11 Sodium 139 mmol/L (137-145) 06/04/20 23:11 Potassium 3.5 mmol/L (3.6-5.0) L 06/04/20 23:11 Chloride 101.6 mmol/L (98-107) 06/04/20 23:11 Carbon Dioxide 22 mmol/L (22-30) 06/04/20 23:11 Anion Gap 19 mmol/L 06/04/20 23:11 BUN 54 mg/dL (7-17) H 06/04/20 23:11 Creatinine 8.8 mg/dL (0.6-1.2) H 06/04/20 23:11 Estimated GFR 5 ml/min 06/04/20 23:11 BUN/Creatinine Ratio 6 % 06/04/20 23:11 Glucose 222 mg/dL (65-100) H 06/04/20 23:11 POC Glucose 258 mg/dL (70-105) H 06/11/20 21:50 Calcium 8.7 mg/dL (8.4-10.2) 06/04/20 23:11 Magnesium 2.40 mg/dL (1.7-2.3) H 06/04/20 23:11 Total Bilirubin 0.20 mg/dL (0.1-1.2) 06/04/20 23:11 AST 19 units/L (5-40) 06/04/20 23:11 ALT 12 units/L (7-56) 06/04/20 23:11 Alkaline Phosphatase 89 units/L (35-129) 06/04/20 23:11 Total Creatine Kinase 42 units/L (30-135) 06/05/20 12:10 CK-MB (CK-2) 1.7 ng/mL (0.0-4.0) 06/05/20 12:10 CK-MB (CK-2) Rel Index 4.0 (0-4) 06/05/20 12:10 Troponin T 0.080 ng/mL (0.00-0.029) H 06/05/20 12:10 Total Protein 7.0 g/dL (6.3-8.2) 06/04/20 23:11 Albumin 2.7 g/dL (3.9-5) L 06/04/20 23:11 Albumin/Globulin Ratio 0.6 % 06/04/20 23:11 Triglycerides 197 mg/dL (2-149) H 06/05/20 05:20 Cholesterol 94 mg/dL (50-199) 06/05/20 05:20 LDL Cholesterol Direct 31 mg/dL (50-130) L 06/05/20 05:20 HDL Cholesterol 26 mg/dL (40-59) L 06/05/20 05:20 Cholesterol/HDL Ratio 3.61 % 06/05/20 05:20 Coronavirus (PCR) Positive (Negative) A 06/08/20 Unknown Hepatitis A IgM Ab Non-reactive (NonReactive) 06/05/20 12:10 Hep Bs Antigen Non-reactive (Negative) 06/05/20 12:10 Hep B Core IgM Ab Non-reactive (NonReactive) 06/05/20 12:10 Hepatitis C Antibody Non-reactive (NonReactive) 06/05/20 12:10 [place]/IV: Voiding Method Bedpan Active Medications - Current Medications Current Medications: Generic Name Dose Route Start Last Admin Trade Name Freq PRN Reason Stop Dose Admin Acetaminophen 650 mg 06/05/20 01:41 Acetaminophen 325 Mg Tab PO Q4H PRN Headache Albuterol 2.5 mg 06/10/20 11:00 06/11/20 03:19 Albuterol 2.5 Mg/3 Ml Nebu IH 2.5 mg Q4H PRN Administration Shortness Of Breath Arformoterol Tartrate 15 mcg 06/11/20 08:00 06/12/20 08:03 Arformoterol 15 Mcg/2 Ml Nebu IH 15 mcg Q12HRT MARTY Administration Budesonide 0.5 mg 06/11/20 08:00 06/12/20 08:03 Budesonide 0.5 Mg/2 Ml Nebu IH 0.5 mg Q12HRT MARTY Administration Diphenhydramine HCl 25 mg 06/07/20 18:00 06/11/20 17:48 Diphenhydramine 25 Mg Cap PO 25 mg Q6H PRN Administration Itching Fluticasone Propionate 100 mcg 06/11/20 13:00 06/11/20 17:44 Fluticasone Propionate Nasal Normal 16 Gm NS 100 mcg QDAY MARTY Administration Sodium Chloride 100 mls @ 999 mls/hr 06/05/20 10:46 Nacl 0.9% IV NANO PRN Hypotension Insulin Human Regular 0 units 06/05/20 07:30 06/12/20 08:02 Insulin Regular, Human 100 Units/1 Ml SUB-Q 2 units ACHS MARTY Administration Protocol Morphine Sulfate 2 mg 06/05/20 01:39 06/12/20 05:41 Morphine 2 Mg/1 Ml Inj IV 2 mg Q4H PRN Administration Pain, Moderate (4-6) Naphazoline HCl/Pheniramine Maleate 2 drops 06/07/20 15:30 06/07/20 15:39 Naphazoline/Pheniramine 0.025/0.3% Ophth Soln 15 Ml OU 2 drops Q6H PRN Administration Dry Eye(s) Ondansetron HCl 4 mg 06/05/20 01:39 06/07/20 12:23 Ondansetron 4 Mg/2 Ml Inj IV 4 mg Q8H PRN Administration Nausea And Vomiting Pantoprazole Sodium 40 mg 06/05/20 09:00 06/12/20 08:00 Pantoprazole 40 Mg Tab PO 40 mg QDAC MARTY Administration
--- NOTE | 2020-06-12 12:23 | Progress Note ---
Assessment and Plan - Patient Problems (1) End-stage renal disease on hemodialysis Current Visit: Yes Status: Acute Plan to address problem: Continue on inpatient Friday/ Friday /Friday hemodialysis schedule. (2) Fall Current Visit: Yes Status: Acute Plan to address problem: Appreciate recommendations and evaluation by physical therapy. (3) Hypertensive chronic kidney disease with stage 5 chronic kidney disease or end stage renal disease Current Visit: Yes Status: Chronic Plan to address problem: Monitor blood pressures on current regimen. (4) Type 2 diabetes mellitus with diabetic nephropathy Current Visit: Yes Status: Chronic Plan to address problem: Diabetes management per primary attending. (5) Anemia in end-stage renal disease Current Visit: Yes Status: Acute Plan to address problem: WILLIAMS therapy with hemodialysis. Subjective Date of service: 06/12/20 Principal diagnosis: End-stage renal disease Interval history: No acute changes overnight. Objective - Exam Narrative Exam: Patient not directly examined secondary to preservation of personal protective equipment. - Vital Signs Vital signs: Vital Signs - 12hr 06/12/20 06/12/20 05:33 08:03 Temperature 98.2 F Pulse Rate 95 H Pulse Rate [ 93 H Anterior Bilateral] Respiratory 24 Rate Respiratory 20 Rate [Anterior Bilateral] Blood Pressure 147/73 O2 Sat by Pulse 91 Oximetry - Lab 06/10/20 10:29 06/04/20 23:11 Most recent lab results Calcium 8.7 mg/dL (8.4-10.2) 06/04/20 23:11 Magnesium 2.40 mg/dL (1.7-2.3) H 06/04/20 23:11 Medications & Allergies - Medications Allergies/Adverse Reactions: Allergies fesoterodine fumarate [From Toviaz] Allergy (Verified 06/30/15 15:10) Unknown Penicillins Adverse Reaction (Verified 01/27/14 21:00) Unknown Home Medications: Home Medications Medication Instructions Recorded Confirmed Last Taken Type Furosemide [Lasix TAB] 20 mg PO QDAY 06/30/15 06/05/20 Unknown History Omeprazole [PriLOSEC] 40 mg PO QDAY 06/30/15 06/05/20 Unknown History Budesonide/Formoterol Fumarate 10.2 gm IH BID 06/05/20 06/05/20 Unknown History [Symbicort 80-4.5 Mcg Inhaler] Fluticasone [Flonase] 2 spray NS QDAY 06/05/20 06/05/20 Unknown History Insulin Glargine [Lantus VIAL] 60 units SUB-Q HS 06/05/20 06/05/20 Unknown History Lidocaine/Prilocaine [Lido-Prilo 1 each TP 3XW 06/05/20 06/05/20 Unknown History Mg Pack] Lovastatin [Altoprev] 20 mg PO DAILY 06/05/20 06/05/20 Unknown History Vit B Comp C/Folic Acid/Vit D3 1 each PO DAILY 06/05/20 06/05/20 Unknown History [Dialyvite 800 Plus D Wafer] Epoetin Nestor-Epbx 10,000 Unit 10,000 unit IV NANO PRN vial 06/08/20 Unknown Rx [Retacrit] Pantoprazole [Protonix TAB] 40 mg PO QDAC tablet 06/08/20 Unknown Rx Active Medications: Generic Name Dose Route Start Last Admin Trade Name Freq PRN Reason Stop Dose Admin Acetaminophen 650 mg 06/05/20 01:41 Acetaminophen 325 Mg Tab PO Q4H PRN Headache Albuterol 2.5 mg 06/10/20 11:00 06/11/20 03:19 Albuterol 2.5 Mg/3 Ml Nebu IH 2.5 mg Q4H PRN Administration Shortness Of Breath Arformoterol Tartrate 15 mcg 06/11/20 08:00 06/12/20 08:03 Arformoterol 15 Mcg/2 Ml Nebu IH 15 mcg Q12HRT MARTY Administration Budesonide 0.5 mg 06/11/20 08:00 06/12/20 08:03 Budesonide 0.5 Mg/2 Ml Nebu IH 0.5 mg Q12HRT MARTY Administration Diphenhydramine HCl 25 mg 06/07/20 18:00 06/11/20 17:48 Diphenhydramine 25 Mg Cap PO 25 mg Q6H PRN Administration Itching Fluticasone Propionate 100 mcg 06/11/20 13:00 06/11/20 17:44 Fluticasone Propionate Nasal [place] 16 Gm NS 100 mcg QDAY MARTY Administration Sodium Chloride 100 mls @ 999 mls/hr 06/05/20 10:46 Nacl 0.9% IV NANO PRN Hypotension Insulin Human Regular 0 units 06/05/20 07:30 06/12/20 08:02 Insulin Regular, Human 100 Units/1 Ml SUB-Q 2 units ACHS MARTY Administration Protocol Morphine Sulfate 2 mg 06/05/20 01:39 06/12/20 05:41 Morphine 2 Mg/1 Ml Inj IV 2 mg Q4H PRN Administration Pain, Moderate (4-6) Naphazoline HCl/Pheniramine Maleate 2 drops 06/07/20 15:30 06/07/20 15:39 Naphazoline/Pheniramine 0.025/0.3% Ophth Soln 15 Ml OU 2 drops Q6H PRN Administration Dry Eye(s) Ondansetron HCl 4 mg 06/05/20 01:39 06/07/20 12:23 Ondansetron 4 Mg/2 Ml Inj IV 4 mg Q8H PRN Administration Nausea And Vomiting Pantoprazole Sodium 40 mg 06/05/20 09:00 06/12/20 08:00 Pantoprazole 40 Mg Tab PO 40 mg QDAC MARTY Administration
[2020-06-12] MEDS: FLUTICASONE PROPIONATE NASAL SPRAY 16 GM NS SCH (15:05)
[2020-06-12 22:18] VITALS: BP 140/68
== END 2020-06-12 22:00 | DRG 682 ==
LOC: ED 21:49 → 3A 06-05 00:47 → OBSVTOIN 06-05 16:24 → 3A 06-08 17:55
PROVIDERS: ADMIT Internal Medicine; ATTEND Hospitalist
PROC: 5A1D70Z Performance of Urinary Filtration, Intermittent, Less than 6 Hours Per Day (ICD-10-PCS; principal; 2020-06-05)
PROC: 5A1D70Z Performance of Urinary Filtration, Intermittent, Less than 6 Hours Per Day (ICD-10-PCS; 2020-06-07)
PROC: 5A1D70Z Performance of Urinary Filtration, Intermittent, Less than 6 Hours Per Day (ICD-10-PCS; 2020-06-09)
PROC: 5A1D70Z Performance of Urinary Filtration, Intermittent, Less than 6 Hours Per Day (ICD-10-PCS; 2020-06-12)
DX: I12.0 Hypertensive chronic kidney disease with stage 5 chronic kidney disease or end stage renal disease (principal); N18.6 End stage renal disease; Z68.41 Body mass index [BMI] 40.0-44.9, adult; M25.561 Pain in right knee; E66.01 Morbid (severe) obesity due to excess calories; E11.42 Type 2 diabetes mellitus with diabetic polyneuropathy; E11.21 Type 2 diabetes mellitus with diabetic nephropathy; R79.89 Other specified abnormal findings of blood chemistry; K21.9 Gastro-esophageal reflux disease without esophagitis; M19.90 Unspecified osteoarthritis, unspecified site; D63.1 Anemia in chronic kidney disease; Z20.822 Contact with and (suspected) exposure to COVID-19; Z99.2 Dependence on renal dialysis; Z88.0 Allergy status to penicillin; Z88.8 Allergy status to other drugs, medicaments and biological substances; Z79.4 Long term (current) use of insulin; Z79.899 Other long term (current) drug therapy; Z86.73 Personal history of transient ischemic attack (TIA), and cerebral infarction without residual deficits; W18.30XA Fall on same level, unspecified, initial encounter; Y93.89 Activity, other specified; Y99.8 Other external cause status; Y92.009 Unspecified place in unspecified non-institutional (private) residence as the place of occurrence of the external cause
CPT/HCPCS: 36415; 70450; 71045; 72170; 80053; 80061; 80074; 82550; 82553; 82962; 83735; 84484; 85025; 85027; 85610; 93005; 94640; 96365; 96375; 96376; G0378; J0885; J1200; J1815; J2270; J2405; U0003